=== PATIENT | male | born 1950 | race Caucasian/White ===

== ENCOUNTER 2016-12-14 06:58 | Day surgery (SDC) | payer OTHER ==
[~2016-12-14 06:58] MED LIST: Acetaminophen TAB* 325 MG PO PRN; Buffered Lidocaine 1% SYR 3ML* 3 ML/SYR SYRINGE INTRADERM ONE
[2016-12-14] MEDS ORDERED: Lidocaine 2% EPI 1:200000 MPF* 20 ML VIAL ONE (08:09)
[2016-12-14] MEDS ORDERED: Proparacaine 0.5% OPHTH.SOL* 15 ML BTL ONE (08:09)
[2016-12-14] MEDS ORDERED: Povidone Iodine 5% OPTH* 30 ML BTL ONE (08:09)
[2016-12-14] MEDS ORDERED: acetaZOLAMIDE TAB* 250 MG ONE (08:09)
[2016-12-14] MEDS ORDERED: Flurbiprofen 0.03% OPTH.SOL* 2.5 ML BTL ONE (08:09)
[2016-12-14] MEDS ORDERED: Cyclopentolate 1% OPTH.SOL* 2 ML BTL ONE (08:09)
[2016-12-14] MEDS ORDERED: Lidocaine 1% MPF* 2 ML VIAL ONE (08:09)
[2016-12-14] MEDS ORDERED: Neomycin/Polymy/Dex OPTH.SUSP* MAXITROL 0.1% 5 ML ONE (08:09)
[2016-12-14] MEDS ORDERED: Phenylephrine 2.5% OPTH.SOL* 2 ML BTL ONE (08:09)
[2016-12-14] MEDS ORDERED: Midazolam* 1 MG/ML 2 ML VIAL (2 MG) ONE ×2 (08:54→09:11)
[2016-12-14 09:44] VITALS: BP 141/66
--- NOTE | 2016-12-14 13:01 | OP ---
OPERATIVE NOTE: DATE OF OPERATION: 12/14/16 DATE OF : 50 SURGEON: Pasha Downey M.D. PREOPERATIVE DIAGNOSIS: Cataract, left eye. POSTOPERATIVE DIAGNOSIS: Cataract, left eye. OPERATIVE PROCEDURE: Phacoemulsification, left eye with IOL. PROCEDURE: The patient was brought to the operating room after being given 1/2% Alcaine with epinep hrine drops in the preoperative area. The eye was prepped and draped in the usual sterile fashion. Sterile drape and eyelid speculum were placed. Again, topical 1/2% Alcaine with epinephrine was gi zuleyka. A paracentesis incision was made at the 3 o'clock position with the No.75 blade. Clear cornea incision 2.2 x 2.2-mm was created at the 6 o'clock position starting at the anterior limbus using t he 2.2-mm keratome. The anterior chamber was irrigated with 0.4 mL of 1% non-preservative intracame ral lidocaine and filled with DisCoVisc. A capsulorrhexis was completed using the cystotome and the Utrata forceps. Hydrodissection was performed with balanced salt solution. The lens nucleus was re moved with the Phacoemulsification handpiece without incident. Cortex was removed with the irrigati on-aspiration handpiece. The capsular bag was re-inflated using DisCoVisc and an [id number] implant was inserted with the shooter. The irrigation-aspiration handpiece was used to remove all residual DisCoVisc. The eye was refilled with balanced salt solution and the wound checked and found to be w atertight. Topical Maxitrol drops were given. [id number]/[facility] #: [id number]
== END 2016-12-14 09:44 | disposition home or self-care (01) ==
LOC: OREAST 06:58
PROVIDERS: ATTEND Specialist
DX: H25.812 Combined forms of age-related cataract, left eye (principal); H43.811 Vitreous degeneration, right eye; I10 Essential (primary) hypertension
CPT/HCPCS: A9270-GY; J2250; V2632

== ENCOUNTER 2017-01-22 08:10 | Inpatient (IN) | payer OTHER ==
[2017-01-22] MEDS ORDERED: Aspirin TAB* 325 MG PO ONE (08:31)
[2017-01-22 08:35] LABS: Hematocrit 40 % (42-52); Hemoglobin 13.9 g/dl (14.0-18.0); Mean Corpuscular HGB Conc 35 g/dl (31-36); Mean Corpuscular Hemoglobin 32 pg (27-31); Mean Corpuscular Volume 92 fL (80-94); Mean Platelet Volume 7 um3 (7.4-10.4); Red Blood Count 4.38 10^6/ul (4.0-5.4); Red Cell Distribution Width 13 % (10.5-15); White Blood Count 5.5 10^3/ul (3.5-10.8)
[2017-01-22] MEDS ORDERED: Aspirin Low Dose CHEW TAB* 81 MG ONE (08:37)
[2017-01-22] MEDS ORDERED: Aspirin Low Dose CHEW TAB* 81 MG PO ONE (08:38)
--- NOTE | 2017-01-22 08:41 | RAD ---
INDICATION: Neurologic changes, code cody. COMPARISON: There are no prior studies available for comparison. TECHNIQUE: Contiguous axial sections of the brain were obtained from the skull base to the vertex without contrast. FINDINGS: The ventricles, cisterns and sulci are within normal limits. No significant focal abnormality or mass effect is seen. There is no evidence for hemorrhage. No significant focal osseous abnormality is seen. The visualized portion of the paranasal sinuses and mastoid air cells appear clear. The results of this exam were called to the referring clinician at 0835 hours. IMPRESSION: NO EVIDENCE FOR GROSS ACUTE INFARCT, MASS EFFECT OR HEMORRHAGE.
--- NOTE | 2017-01-22 09:01 | RAD ---
INDICATION: Neurologic changes code cody. COMPARISON: Comparison is made with prior chest x-ray study from August 24, 2007. TECHNIQUE: A portable view of the chest was obtained. FINDINGS: Cardiac and mediastinal contours appear to be within normal limits. There is a small area of increased density which projects over the right upper lobe. The lungs are otherwise clear. No pleural effusion is seen. IMPRESSION: THERE IS A SMALL AREA OF INCREASED DENSITY WHICH PROJECTS OVER THE RIGHT UPPER LOBE LIKELY ARTIFACTUAL ALTHOUGH A SMALL INFILTRATE OR PULMONARY NODULE CANNOT BE EXCLUDED. RECOMMEND PA AND LATERAL CHEST FILMS FOR FURTHER EVALUATION.
[2017-01-22 09:21] LABS: Albumin 4.3 g/dL (3.2-5.2); BUN/Creatinine Ratio 26.5 (8-20); Calcium 8.9 mg/dL (8.6-10.3); EGFR African American 69.8 (>60); EGFR Non-African American 54.3 (>60); Globulin 2.8 g/dL (2-4); HDL Cholesterol 44.7 mg/dL; Total Bilirubin 0.5 mg/dL (0.2-1.0); Total Protein 7.1 g/dL (6.4-8.9)
[2017-01-22] MEDS ORDERED: Alteplase* 100 MG VIAL ONE (09:36)
[2017-01-22] MEDS ORDERED: ALTEPLASE IVPB ONE (11:00)
[2017-01-22] MEDS ORDERED: ALTEPLASE IV ONE (11:00)
--- NOTE | 2017-01-22 12:00 | ED ---
Gisell Cain Alok, scribed for James Caraballo MD on 01/22/17 at 0823 . Neurological HPI - HPI Summary HPI Summary: 66M presents to the ED with numbness of the right arm since one hour ago. Pt states this numbness began at his fingertips and spread to the rest of his arm. Pt also notes loss of fine motor control in his right arm especially in his right 4th and 5th fingers. Pt denies difficulty ambulating or expressive aphasia. Pt denies neck pain. PMHx includes medically controlled HTN. - History of Current Complaint Chief Complaint: EDNeurologicalDeficit Stated Complaint: RIGHT ARM NUMBNESS Hx Obtained From: Patient Onset/Duration: Started hours ago, Still Present Timing: Constant Onset Severity: Moderate Current Severity: Moderate Neurological Deficit Location: RUE Pain Intensity: 0 Character: Motor Weakness, Sensory Loss Aggravating: Nothing Alleviating: Nothing Associated Signs and Symptoms: Positive: Weakness - Motor, Numbness. Negative: Unsteady Gait, Impaired Speech, Neck Pain/Stiffness - Allergy/Home Medications Allergies/Adverse Reactions: Allergies Allergy/AdvReac Type Severity Reaction Status Date / Time No Known Allergies Allergy Verified 01/22/17 08:29 PMH/Surg Hx/FS Hx/Imm Hx Endocrine/Hematology History: Denies: Hx Diabetes, Hx Thyroid Disease Cardiovascular History: Reports: Hx Hypertension - controlled with medication Respiratory History: Denies: Hx Asthma, Hx Chronic Obstructive Pulmonary Disease (COPD) GI History: Reports: Other GI Disorders - indigestion in AM. Increased acid production, controlled with medication. Denies: Hx Ulcer Sensory History: Reports: Hx Cataracts - left eye only, Hx Contacts or Glasses - reading Denies: Hx Hearing Aid Opthamlomology History: Reports: Hx Cataracts - left eye only, Hx Contacts or Glasses - reading - Surgical History Hx Anesthesia Reactions: No Infectious Disease History: Denies: Hx Hepatitis, Hx Human Immunodeficiency Virus (HIV), Traveled Outside the [place] in Last 30 Days - Family History Known Family History: Negative: Cardiac Disease, Hypertension, Diabetes - Social History Occupation: Retired Lives: With Family Alcohol Use: Weekly Alcohol Amount: 1-2 drinks a day Substance Use Type: Reports: None Smoking Status (MU): Never Smoked Tobacco Review of Systems Negative: Fever Negative: Other - neck pain Positive: Weakness - Motor, Numbness. Negative: Slurred Speech All Other Systems Reviewed And Are Negative: Yes Physical Exam Triage Information Reviewed: Yes Vital Signs On Initial Exam: Initial Vitals Temp Pulse Resp BP Pulse Ox 98.3 F 62 17 172/82 99 01/22/17 08:12 01/22/17 08:12 01/22/17 08:12 01/22/17 08:12 01/22/17 08:12 Vital Signs Reviewed: Yes Appearance: Positive: Well-Appearing, No Pain Distress Skin: Positive: Warm, Skin Color Reflects Adequate Perfusion, Dry Head/Face: Positive: Normal Head/Face Inspection Eyes: Positive: Normal ENT: Positive: Normal ENT inspection Neck: Positive: Supple, Nontender Respiratory/Lung Sounds: Positive: Clear to Auscultation, Breath Sounds Present Cardiovascular: Positive: RRR Abdomen Description: Positive: Nontender, Soft Bowel Sounds: Positive: Present Musculoskeletal: Positive: Normal Neurological: Positive: Normal, Sensory/Motor Intact, Alert, Oriented to Person Place, Time, CN Intact II-III, Other - Mild right-sided dysmetria Psychiatric: Positive: Normal, Affect/Mood Appropriate Diagnostics - Vital Signs Vital Signs Temp Pulse Resp BP Pulse Ox 01/22/17 08:12 98.3 F 62 17 172/82 99 - Laboratory Lab Results: Lab Results 01/22/17 01/22/17 01/22/17 Range/Units 08:30 08:30 08:30 WBC 5.5 (3.5-10.8) 10^3/ul RBC 4.38 (4.0-5.4) 10^6/ul Hgb 13.9 L (14.0-18.0) g/dl Hct 40 L (42-52) % MCV 92 (80-94) fL MCH 32 H (27-31) pg MCHC 35 (31-36) g/dl RDW 13 (10.5-15) % Plt Count 182 (150-450) 10^3/ul MPV 7 L (7.4-10.4) um3 Neut % (Auto) 65.4 (38-83) % Lymph % (Auto) 22.0 L (25-47) % Andrews % (Auto) 7.6 (1-9) % Eos % (Auto) 4.1 (0-6) % Baso % (Auto) 0.9 (0-2) % Absolute Neuts (auto) 3.6 (1.5-7.7) 10^3/ul Absolute Lymphs (auto) 1.2 (1.0-4.8) 10^3/ul Absolute Monos (auto) 0.4 (0-0.8) 10^3/ul Absolute Eos (auto) 0.2 (0-0.6) 10^3/ul Absolute Basos (auto) 0 (0-0.2) 10^3/ul Absolute Nucleated RBC 0 10^3/ul Nucleated RBC % 0 INR (Anticoag Therapy) 0.80 L (0.89-1.11) APTT 27.4 (26.0-36.3) seconds Sodium 135 (133-145) mmol/L Potassium 4.0 (3.5-5.0) mmol/L Chloride 108 (101-111) mmol/L Carbon Dioxide 22 (22-32) mmol/L Anion Gap 5 (2-11) mmol/L BUN 35 H (6-24) mg/dL Creatinine 1.32 H (0.67-1.17) mg/dL Est GFR ( Amer) 69.8 (>60) Est GFR (Non-Af Amer) 54.3 (>60) BUN/Creatinine Ratio 26.5 H (8-20) Glucose 126 H (70-100) mg/dL Lactic Acid (0.5-2.0) mmol/L Calcium 8.9 (8.6-10.3) mg/dL Total Bilirubin 0.50 (0.2-1.0) mg/dL AST 25 (13-39) U/L ALT 28 (7-52) U/L Alkaline Phosphatase 30 L (34-104) U/L Troponin I 0.00 (<0.04) ng/mL Total Protein 7.1 (6.4-8.9) g/dL Albumin 4.3 (3.2-5.2) g/dL Globulin 2.8 (2-4) g/dL Albumin/Globulin Ratio 1.5 (1-3) Triglycerides 78 mg/dL Cholesterol 162 mg/dL LDL Cholesterol 102 mg/dL HDL Cholesterol 44.7 mg/dL Blood Type Antibody Screen 01/22/17 01/22/17 Range/Units 08:30 08:30 WBC (3.5-10.8) 10^3/ul RBC (4.0-5.4) 10^6/ul Hgb (14.0-18.0) g/dl Hct (42-52) % MCV (80-94) fL MCH (27-31) pg MCHC (31-36) g/dl RDW (10.5-15) % Plt Count (150-450) 10^3/ul MPV (7.4-10.4) um3 Neut % (Auto) (38-83) % Lymph % (Auto) (25-47) % Andrews % (Auto) (1-9) % Eos % (Auto) (0-6) % Baso % (Auto) (0-2) % Absolute Neuts (auto) (1.5-7.7) 10^3/ul Absolute Lymphs (auto) (1.0-4.8) 10^3/ul Absolute Monos (auto) (0-0.8) 10^3/ul Absolute Eos (auto) (0-0.6) 10^3/ul Absolute Basos (auto) (0-0.2) 10^3/ul Absolute Nucleated RBC 10^3/ul Nucleated RBC % INR (Anticoag Therapy) (0.89-1.11) APTT (26.0-36.3) seconds Sodium (133-145) mmol/L Potassium (3.5-5.0) mmol/L Chloride (101-111) mmol/L Carbon Dioxide (22-32) mmol/L Anion Gap (2-11) mmol/L BUN (6-24) mg/dL Creatinine (0.67-1.17) mg/dL Est GFR ( Amer) (>60) Est GFR (Non-Af Amer) (>60) BUN/Creatinine Ratio (8-20) Glucose (70-100) mg/dL Lactic Acid 1.0 (0.5-2.0) mmol/L Calcium (8.6-10.3) mg/dL Total Bilirubin (0.2-1.0) mg/dL AST (13-39) U/L ALT (7-52) U/L Alkaline Phosphatase (34-104) U/L Troponin I (<0.04) ng/mL Total Protein (6.4-8.9) g/dL Albumin (3.2-5.2) g/dL Globulin (2-4) g/dL Albumin/Globulin Ratio (1-3) Triglycerides mg/dL Cholesterol mg/dL LDL Cholesterol mg/dL HDL Cholesterol mg/dL Blood Type O Positive Antibody Screen Negative Result Diagrams: 01/22/17 08:30 01/22/17 08:30 Lab Statement: Any lab studies that have been ordered have been reviewed, and results considered in the medical decision making process. - Radiology CXR Xray Interpretation: Positive (See Comments) - IMPRESSION: THERE IS A SMALL AREA OF INCREASED DENSITY WHICH PROJECTS OVER THE RIGHT UPPER LOBE LIKELY ARTIFACTUAL ALTHOUGH A SMALL INFILTRATE OR PULMONARY NODULE CANNOT BE EXCLUDED. RECOMMEND PA AND LATERAL CHEST FILMS FOR FURTHER EVALUATION. Radiology Interpretation Completed By: Radiologist - CT Brain CT CT Interpretation: Positive (See Comments) - IMPRESSION: NO EVIDENCE FOR GROSS ACUTE INFARCT, MASS EFFECT OR HEMORRHAGE. CT Interpretation Completed By: Radiologist - EKG 0831 Cardiac Rate: Bradycardia - 55 bpm EKG Rhythm: Sinus Bradycardia Course/Dx - Course Course Of Treatment: Mr. Pete had the sudden onset of right arm numbness and loss of coordination about an hour and a half prior to presentation, He has a history of HTN. On arrival he had some mild decreased sensation in the right hand and dysmetria aith the right arm and a Yoly Zamudio was called. Dr. Tafoya responded promptly and after a little [id number] with the patient and his symptoms, TPA was given. 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
[2017-01-22] MEDS ORDERED: Iodixanol* (CONTRAST) 320 MG/ML 100 ML SDV IV ONE (12:18)
--- NOTE | 2017-01-22 12:52 | HP ---
H&P (Free Text) History and Physical: History and Physical Critical Care Requesting Physician: Dr James Caraballo Limitations in history/physical: none Date of admission: 01/22/2017 HPI: 66y M pmhx of hypertension, GERD; who presents to ER for complaints of right hand numbness at 7am, started suddenly, remains in hand and fingertips. Then developed weakness and lost fine motor capability. He was had no Right upper ext or bilateral lower ext weakness or numbness. No headache/palpitations/ dizziness/double vision/cp/sob. No abd pain. No syncope/LOC. He came to the ER. CT head done showing no hemorrhage. Neurology consult called stat. Initially the symptoms started to improve and tPA was held off. Then symptoms reoccurred. tPA administration was discussed with patient who agreed then. He was given tPA at 1005am. He is currently in bed, no right hand/arm numbness or weakness. He feels okay. HE states no slurred speech. He is awake, alert. No previous arrhythmias as per him. Compliant with medications. No previous history of stroke/TIA. ROS: negative except for pertitent positives and negatives mentioned above. PMHx: Hypertension, GERD PSHx: none Family History: HTN, Cardiac disease, DM Social History: Alcohol social, Smoking none, Drug use none; retired from job Allergies: NKDA Home Medications: Atenolol TAB* [Tenormin TAB*] 100 mg PO QAM 02/25/13 [History Confirmed 01/22/17 ] Multivitamins/Minerals TAB* [Thera M Plus TAB*] 1 tab PO QAM 02/25/13 [History Confirmed 01/22/17] Triamcinolone NASAL SPRAY* [Nasacort AQ Nasal [place]*] 2 puff BOTH NARES DAILY [History Confirmed 01/22/17] Amlodipine Besylate [Norvasc 5 mg tab] 1 tab PO QAM 12/09/16 [History Confirmed 01/22/17] Lactobacillus [Probiotic] 1 cap PO QAM 12/09/16 [History Confirmed 01/22/17] Losartan Potassium 100 mg PO QAM 12/09/16 [History Confirmed 01/22/17] Pantoprazole TAB (NF) [Protonix TAB (NF)] 1 tab PO BID 12/09/16 [History Confirmed 01/22/17] Spironolactone [Aldactone 25 MG-] 1 tab PO QAM 12/09/16 [History Confirmed 01/22] Tele: Sinus bradycardia Vitals: Vital Signs Temp 97.9 F 01/22/17 12:54 Pulse 54 01/22/17 12:54 Resp 10 01/22/17 12:54 BP 155/72 01/22/17 12:54 Pulse Ox 96 01/22/17 12:54 Intake & Output 01/21/17 01/22/17 01/22/17 18:59 06:59 18:59 Intake Total 82 Balance 82 Weight 201 lb 12.8 oz Intake: IV Fluids 82 O2/Vent: RA, sat >95% Infusions: none Current Medications: Atenolol (Tenormin Tab*) 100 mg PO QAM JOSE Atorvastatin Calcium (Lipitor*) 80 mg PO 1700 JOSE Omeprazole (Prilosec Cap*) 20 mg PO 0730,1630 JOSE Physical Exam: General: awake, alert, no distress, no diaphoresis Head: normocephalic, atraumatic HEENT: no pallor, no icterus, moist mucous membranes Neck: soft, supple, no jvd, no stridor CVS: bradycardic, normal rhythm, no murmur Resp: bilateral air entry, no rhales, no wheeze, no rhonchi, no acc muscle use Abdomen: soft, nontender, nondistended, bowel sounds present Ext: pulses+, warm, no edema Skin: intact, no breakdown, no dryness Neuro: awake, alert, orientedx3, all ext 5/5 strength and sensation intact ( gross, fine), no facial droop, Cranial nerves intact. pupils bilaterally reactive. Labs: Laboratory Results - last 24 hr 01/22/17 01/22/17 01/22/17 08:30 08:30 08:30 WBC 5.5 RBC 4.38 Hgb 13.9 L Hct 40 L MCV 92 MCH 32 H MCHC 35 RDW 13 Plt Count 182 MPV 7 L Neut % (Auto) 65.4 Lymph % (Auto) 22.0 L [place] % (Auto) 7.6 Eos % (Auto) 4.1 Baso % (Auto) 0.9 Absolute Neuts (auto) 3.6 Absolute Lymphs (auto) 1.2 Absolute Monos (auto) 0.4 Absolute Eos (auto) 0.2 Absolute Basos (auto) 0 Absolute Nucleated RBC 0 Nucleated RBC % 0 INR (Anticoag Therapy) 0.80 L APTT 27.4 Sodium 135 Potassium 4.0 Chloride 108 Carbon Dioxide 22 Anion Gap 5 BUN 35 H Creatinine 1.32 H Est GFR ( Amer) 69.8 Est GFR (Non-Af Amer) 54.3 BUN/Creatinine Ratio 26.5 H Glucose 126 H Lactic Acid Calcium 8.9 Total Bilirubin 0.50 AST 25 ALT 28 Alkaline Phosphatase 30 L Troponin I 0.00 Total Protein 7.1 Albumin 4.3 Globulin 2.8 Albumin/Globulin Ratio 1.5 Triglycerides 78 Cholesterol 162 LDL Cholesterol 102 HDL Cholesterol 44.7 Blood Type Antibody Screen 01/22/17 01/22/17 08:30 08:30 WBC RBC Hgb Hct MCV MCH MCHC RDW Plt Count MPV Neut % (Auto) Lymph % (Auto) [place] % (Auto) Eos % (Auto) Baso % (Auto) Absolute Neuts (auto) Absolute Lymphs (auto) Absolute Monos (auto) Absolute Eos (auto) Absolute Basos (auto) Absolute Nucleated RBC Nucleated RBC % INR (Anticoag Therapy) APTT Sodium Potassium Chloride Carbon Dioxide Anion Gap BUN Creatinine Est GFR ( Amer) Est GFR (Non-Af Amer) BUN/Creatinine Ratio Glucose Lactic Acid 1.0 Calcium Total Bilirubin AST ALT Alkaline Phosphatase Troponin I Total Protein Albumin Globulin Albumin/Globulin Ratio Triglycerides Cholesterol LDL Cholesterol HDL Cholesterol Blood Type O Positive Antibody Screen Negative Imaging: cxr 01/22 - no infiltrate/effusion CT head 01/22 - no acute infarct/hemorrhage CTA 01/22 pending Assessment: 66y M pmhx of hypertension, GERD; who presents to ER for complaints of right hand numbness at 7am, started suddenly, remains in hand and fingertips. Symptoms resolved then reoccurred. He was given tPA at 1005am. NIHSS 3 -s/p tPA for Ischemic CVA, suspect left MCA territory given symptoms. -Hypertension -Renal insufficiency, JIGNESH? Plan: Neuro- neurochecks q1 h, fall prec, asp prec. carotid duplex. MRI in AM. CTA done and pending read. Symptoms have improved. ASA starting in AM. Tele monitoring for Afib/flutter. Maintain passive hypertension 140-160 systolic. Start IVF. Very mild deficit initially, will allow clear liquid diet for now, NPO if any progression in symptoms. Neurology consul done. CVS- sinus reid. tele monitoring. ECHO for eval of thrombus. Carotid duplex. CTA done and pending. ASA in AM. no history of arrhythmia from pt. Resp- on RA, no distress ID- afebrile. wbc normal. no abx indicated. GI- clear liquid while neuro checks ongoing. Renal- mild JIGNESH, start NS infusion 60cc/hour. johnson in place. monitor i/o. monitor electrolytes. Heme- monitor for bleeding post tpa. hg stable. plt stable. Endo- avoid fingersticks now. Musculsk- bedrest strict. Wounds- none Nutrition- clear liquid diet for now, advance in 24 hours if no change in neuro status. DVT prophylaxis: s/p tpa GI prophylaxis: none Central Line: none Arterial Line: none Johnson Cathetor: yes Disposition: ICU for neurochecks post tpa for CVA Code Status: full code Estimiated lenght of stay >2 midnight Dean Guzman MD Airborne And Air Delivery Specialist (Electronically Signed)
--- NOTE | 2017-01-22 13:12 | CONS ---
CC: Manuel Chaudhary MD CONSULTATION REPORT: DATE OF CONSULT: 01/22/17 REASON FOR CONSULT: Acute stroke, code cody. REQUESTING PHYSICIAN: Dr. Caraballo in the ED. HISTORY OF PRESENT ILLNESS: Patient is a 66-year-old right-handed male who was in his usual state of health until earlier today. At about 6 a.m., he woke up from sleep, and everything was fine, around 7 a.m. he felt sudden numbness in the right arm with decreased dexterity on the same hand. There was no other associated symptoms such as no double vision, diplopia, dizziness, or weakness in the legs or dysarthria. He came to the ED, Neurology was called around 8:20 a.m. By the time I arrived at the bedside, it was 8:45. PAST MEDICAL HISTORY: Significant only for hypertension since and has been on blood pressure medications. PAST SURGICAL HISTORY: None. FAMILY HISTORY: Father of liver cancer probably in his 50s. Mother in her 70s, no clear cause. He has 1 brother who probably has Alzheimer's dementia. SOCIAL HISTORY: Lives with his who is at the bedside. The patient does not smoke or use drugs. He drinks about 2 drinks every day. 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 ALLERGIES: NO KNOWN DRUG ALLERGIES. MEDICATIONS: 1. Spironolactone 1 tablet of 25 mg p.o. daily. 2. Protonix 1 tablet p.o. b.i.d. 3. Multivitamin. 4. Losartan 100 mg p.o. q. a.m. 5. Atenolol 100 mg p.o. q. a.m. 6. Amlodipine 1 tablet p.o. q. a.m. 5 mg. REVIEW OF SYSTEMS: Complete review of systems was performed and other than what is mentioned in HPI is negative. PHYSICAL EXAM: Blood pressure is 156/82 and fluctuates with the highest since arrival to the hospital being 172/82, pulse rate is 54, respiratory rate 20, O2 sat 95 to 99% on room air. Temperature 97.5. Patient is awake, alert and oriented x3. Pupils are symmetric and reactive to light. Extraocular movements are intact. Visual freeman are intact by confrontation. Face is symmetric. V1 to V3 is intact to light touch and pinprick bilaterally. Tongue is in midline. Palate elevates upwards. On motor exam, there is a pronator drift on the right arm and industrial relations manager on the right hand slightly less compared to the left. Otherwise, strength is 5/5 throughout. Sensory exam is slightly decreased to light touch and pinprick in the right upper extremity from shoulder down to the hand. Finger-to- nose, has a mile ataxia (tremor) on the right arm with subtle dysmetria. Rapid alternative movements slightly slower on the right hand. Heel to bravo is intact bilaterally. Deep tendon reflexes are 1+ in upper and lower extremities bilaterally. Gait is narrow-based and stable. NIH stroke scale at this point is 3 with 1 point for right arm drift, 1 point for mild sensory decrease in the right upper extremity and 1 point for limb ataxia in one limb. DIAGNOSTIC STUDIES/LAB DATA: WBC 5.5, hemoglobin 13.9, hematocrit 40, platelet 182, INR is 0.80. Chemistry: Sodium 135, potassium 4, chloride 108, BUN 35, creatinine 1.32. Glucose 126. AST 25, ALT 28. LDL is 102, HDL is 44. IMAGING: A CT of the head shows no evidence of acute infarct, mass effect, no hemorrhage. ASSESSMENT AND PLAN: Patient is a 66-year-old right-handed male with an acute onset of right arm weakness with decreased dexterity in that hand and numbness in the same arm. On exam, NIH stroke scale is 3. The patient's symptoms were fluctuating since the start and also while he was in the ED. The clinical presentation is more consistent with an acute stroke of small vessel type, probably lacunar infract. NIH stroke scale is low, but given the patient is right-handed and is highly functional, offered the option of thrombolytic therapy and discussed the risks and benefits. I discussed that thrombolytic therapy will less likely be effective in lacunar strokes (likely what he has). The patient eventually decided to proceed with the thrombolytic therapy understanding the risks and knowing that it may not be completely effective. Therefore, we proceeded with that and the bolus was given around 9:55 am. He will be admitted to ICU for close monitoring for 24 hours post tPA. We will keep the blood pressure on the higher side for permissive hypertension but systolic less than 180 and diastolic less than 110. We will start high dose statin at 80 mg Lipitor, also need an MRI of the brain and CT angiogram of the head and neck as well as a transthoracic echo and tele monitoring. Rest of the post tPA orders were entered including no anticoagulation or antiplatelets for 24 hours after administration of tPA. [id number]/[facility] #: [id number] [facility]
--- NOTE | 2017-01-22 13:16 | RAD ---
INDICATION: Neurologic changes, code cody. COMPARISON: Comparison is made with a prior CT of the brain of the same day. TECHNIQUE: A CT angiogram of the head and neck was performed following intravenous injection of 80 ml of Visipaque 320 nonionic contrast. Contiguous axial sections were obtained from the thoracic inlet through the skull vertex. Images were reconstructed in the coronal and sagittal planes and in a 3-D volume rendered format. The distal cervical internal carotid artery diameter is used as the denominator for stenosis measurement. 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 The right common carotid artery appears widely patent. There is moderate calcific and soft plaque within the carotid bulb and proximal internal carotid artery giving rise to approximately a 30-40% stenosis. The remaining internal carotid artery appears widely patent. LEFT CAROTID: The left common carotid artery appears widely patent. There is moderate calcific and soft plaque within the carotid bulb and proximal internal carotid artery. There also appears to be an ulcerated plaque within the carotid bulb. There is a 30-40% stenosis present. The remaining internal carotid artery appears widely patent. VERTEBRALS: The right vertebral artery arises from the proximal right common carotid artery. The vertebral arteries appear patent without evidence for high-grade stenosis or occlusion. CTA BRAIN: There is moderate calcific plaque present within the cavernous portion of the internal carotid arteries. There is no evidence for high-grade stenosis or occlusion. The anterior and middle cerebral arteries appear patent without evidence for high-grade stenosis or occlusion. The vertebral, basilar and posterior cerebral arteries appear patent without evidence for high-grade stenosis or occlusion. No gross focal perfusion abnormalities are seen. No aneurysm or vascular malformation is seen. NECK: No significant enlarged lymph nodes are seen within the neck. The thyroid, parotid and submandibular glands appear to be within normal limits. The lung apices appear clear. There are small mucous retention cysts or polyps within the maxillary sinuses. The sinuses and mastoid air cells otherwise appear clear. IMPRESSION: 1. THERE IS MODERATE PLAQUE PRESENT WITHIN THE CAROTID BULBS AND PROXIMAL INTERNAL CAROTID ARTERIES. NO HEMODYNAMICALLY SIGNIFICANT STENOSIS IS PRESENT. THERE IS AN ULCERATED PLAQUE WITHIN THE LEFT CAROTID BULB. 2. NO EVIDENCE FOR LARGE VESSEL INTRACRANIAL THROMBUS. 3. ABERRANT ORIGIN OF THE RIGHT SUBCLAVIAN ARTERY DESCRIBED. 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 CPT II Codes: 3100F
[2017-01-22] MEDS: NS 0.9% 1000 ML* 1,000 ML IV SCH (13:35)
[2017-01-22 13:54] LABS: Hematocrit 39 % (42-52); Hemoglobin 13.6 g/dl (14.0-18.0); Mean Corpuscular HGB Conc 35 g/dl (31-36); Mean Corpuscular Hemoglobin 32 pg (27-31); Mean Corpuscular Volume 92 fL (80-94); Mean Platelet Volume 7 um3 (7.4-10.4); Red Blood Count 4.26 10^6/ul (4.0-5.4); Red Cell Distribution Width 13 % (10.5-15); White Blood Count 5.8 10^3/ul (3.5-10.8)
[2017-01-22 14:05] LABS: Calcium 8.9 mg/dL (8.6-10.3); EGFR African American 85.2 (>60); EGFR Non-African American 66.3 (>60)
[2017-01-22] MEDS ORDERED: Acetaminophen SUPP* 650 MG SUPP PR PRN (14:51)
[2017-01-22] MEDS: Omeprazole CAP* 20 MG PO SCH (18:03)
[2017-01-22] MEDS: Atorvastatin* 80 MG TAB PO SCH (18:03)
[2017-01-23] MEDS: Acetaminophen TAB* 325 MG PO PRN ×3 (04:38→18:00)
[2017-01-23 06:14] LABS: Hematocrit 37 % (42-52); Hemoglobin 13.4 g/dl (14.0-18.0); Mean Corpuscular HGB Conc 36 g/dl (31-36); Mean Corpuscular Hemoglobin 33 pg (27-31); Mean Corpuscular Volume 91 fL (80-94); Mean Platelet Volume 7 um3 (7.4-10.4); Red Blood Count 4.12 10^6/ul (4.0-5.4); Red Cell Distribution Width 13 % (10.5-15); White Blood Count 7.3 10^3/ul (3.5-10.8)
[2017-01-23 06:15] LABS: Comments Flag Yes
[2017-01-23] MEDS: NS 0.9% 1000 ML* 1,000 ML IV SCH (06:15)
[2017-01-23 06:40] LABS: Calcium 8.6 mg/dL (8.6-10.3); Potassium 3.7 mmol/L (3.5-5.0)
[2017-01-23 07:46] LABS: BUN/Creatinine Ratio 19.2 (8-20); EGFR African American 97.3 (>60); EGFR Non-African American 75.6 (>60)
[2017-01-23] MEDS ORDERED: Perflutren Lipid Microsphere* 3 ML VIAL ONE (07:55)
[2017-01-23] MEDS: Atenolol TAB* 50 MG PO SCH (09:41)
--- NOTE | 2017-01-23 09:42 | ECHO ---
Patient: ANTWAN STEPHENS [facility] Rec#: [id number] : 1950 Date: 01/23/2017 Age: 66y Weight: kg / NaN lbs Sex: M Room#: ICU-10 Admit Date#: 01/22/2017 Type: Inpatient Referring: Dean Guzman Reading: Martin Latif MD Neurology Manager: Faye Last RDCS CC: Manuel Chaudhary MD Transthoracic Echocardiogram Indication: CVA BP: 137/68 HR: 59 Rhythm: Bradycardia Findings History: HTN,GERD,+ family history. Technical Comments: The study quality is good. Completed at 0832. Left Ventricle: The left ventricular chamber size is normal. Septal wall hypertrophy is observed. Global left ventricular wall motion and contractility are within normal limits. There is normal left ventricular systolic function. The estimated ejection fraction is 55-60%. Abnormal left ventricular diastolic function is observed. No thrombus is visualized within the left ventricle. Left Atrium: The left atrium is mildly dilated. Right Ventricle: The right ventricular cavity size is normal. The right ventricular global systolic function is normal. Right Atrium: The right atrium is mildly dilated. Aortic Valve: The aortic valve is trileaflet. The aortic valve leaflets are mildly thickened. There is mild aortic regurgitation. There is no evidence of aortic stenosis. Mitral Valve: The mitral valve leaflets are mildly thickened. There is moderate mitral regurgitation. There is no evidence of mitral stenosis. Tricuspid Valve: The tricuspid valve leaflets are normal. There is no evidence of tricuspid valve regurgitation. Unable to estimate the right ventricular systolic pressure. There is no tricuspid stenosis. Pulmonic Valve: The pulmonic valve appears normal. There is mild pulmonic regurgitation. There is no pulmonic stenosis. Pericardium: The pericardium appears normal. Aorta: There is mild dilatation of the ascending aorta.3.7 cm There is no dilatation of the aortic arch. There is mild dilatation of the aortic root. Pulmonary Artery: The main pulmonary artery appears normal. Venous: The venous system is not well visualized. Contrast: Definity was used to optimize study. A otal of 3 ml used. Intravenous contrast was used to enhance endocardial border definition. Conclusions Global left ventricular wall motion and contractility are within normal limits. There is normal left ventricular systolic function. The estimated ejection fraction is 55-60%. Abnormal left ventricular diastolic function is observed. The right ventricular global systolic function is normal. There is mild aortic regurgitation. There is moderate mitral regurgitation. There is no evidence of tricuspid valve regurgitation. Unable to estimate the right ventricular systolic pressure. There is mild dilatation of the ascending aorta.3.7 cm Measurements Name Value Normal Range RVIDd (AP) 2D 3.3 cm (0.9 - 2.6) RVDdMajor (2D) 3.6 cm (2.2 - 4.4) RAd ISD 4CH 6 cm (3.4 - 4.9) RA (A4C)W 3.4 cm (2.9 - 4.6) IVSd (2D) 1.4 cm (0.6 - 1) LVPWd (2D) 1 cm (0.6 - 1) LVIDd (2D) 4.9 cm (3.6 - 5.4) LVIDs (2D) 3.7 cm - LV FS (2D) 26 % (25 - 45) Aortic Annulus 2.1 cm (1.4 - 2.6) Ao root diameter (2D) 3.7 cm (2.1 - 3.5) Ascending Ao 3.7 cm (2.1 - 3.4) Aortic arch 2.8 cm (1.8 - 3.4) Descending Ao 0.7 cm - LA dimension (AP) 2D 4 cm (2.3 - 3.8) LAd ISD 4CH 5.6 cm (2.9 - 5.3) LA ISD 4CH W 4.1 cm (2.5 - 4.5) Name Value Normal Range LA ESV SP 4CH (A/L) 38.58 ml - LA ESV SP 2CH (A/L) 76.75 ml - LA ESV BP (A/L) 55.99 ml - LA ESV SP 4CH (MOD) 37.55 ml - LA ESV SP 2CH (MOD) 73.11 ml - Name Value Normal Range MV E-wave Vmax 1 m/sec - MV deceleration time 165 msec - MV A-wave Vmax 1.1 m/sec - MV E:A ratio 0.87 ratio - LV septal e' Vmax 0.06 m/sec - LV lateral e' Vmax 0.08 m/sec - LV E:e' septal ratio 16.67 ratio - LV E:e' lateral ratio 12.5 ratio - Name Value Normal Range AV Vmax 1.5 m/sec - AV VTI 34.9 cm - AV peak gradient 9.04 mmHg - AV mean gradient 4.5 mmHg - LVOT diameter 2.1 cm - LVOT Vmax 1.2 m/sec - LVOT VTI 29.2 cm - LVOT peak gradient 5.53 mmHg - LVOT mean gradient 2.43 mmHg - CARLOS (continuity Vmax) 3.2 cm2 - CARLOS (continuity VTI) 2.9 cm2 - AR PHT 644 msec - AR peak gradient 94.93 mmHg - Name Value Normal Range PV Vmax 0.9 m/sec - PV peak gradient 3.27 mmHg -
--- NOTE | 2017-01-23 12:02 | RAD ---
HISTORY: Headaches, right-sided weakness, status post TPA COMPARISONS: CT dated January 22, 2017 TECHNIQUE: The following sequences were obtained of the head: Sagittal T1-weighted images, axial T2-weighted images, axial FLAIR images, axial susceptibility weighted images, axial T1-weighted images. Additionally, axial diffusion-weighted images were obtained with calculated apparent diffusion coefficients. FINDINGS: HEMORRHAGE/INFARCT: There is minimal restricted diffusion along the cortex of the left postcentral gyrus consistent with subacute nonhemorrhagic infarct. Elsewhere, there is no hemorrhage or acute infarct. MASSES/SHIFT: There is no mass or shift. EXTRA-AXIAL SPACES/MENINGES: There are no extra-axial fluid collections. SULCI AND VENTRICLES: The sulci and ventricles are normal in size and position for the patient's stated age. CEREBRUM: There are multiple scattered small foci of elevated T2/FLAIR signal within the periventricular and subcortical white matter. Additionally, there is elevated T2/fat signal along the cortex of the left post central gyrus. BRAINSTEM: There are no focal parenchymal abnormalities. CEREBELLUM: There are no focal parenchymal abnormalities. The cerebellar tonsils are normal in size and position. SELLA: The sella is normal. PINEAL: The pineal region is clear. CP ANGLE/TEMPORAL BONES: The labyrinthine structures are grossly normal. VESSELS: Normal flow-voids are noted within the visualized vertebral vasculature. DIFFUSION ABNORMALITIES: As noted above, there is linear restricted diffusion along the cortex of the post central gyrus on the left. PARANASAL SINUSES/MASTOIDS: The paranasal sinuses are clear. ORBITS: The orbits are unremarkable. BONES AND SOFT TISSUE: No bone or soft tissue abnormalities are noted. OTHER: None IMPRESSION: 1. THERE IS MINIMAL LINEAR RESTRICTED DIFFUSION ALONG THE POSTCENTRAL GYRUS ON THE LEFT CONSISTENT WITH SUBACUTE HEMORRHAGIC INFARCT. 2. SCATTERED NONSPECIFIC WHITE MATTER CHANGES
[2017-01-23] MEDS ORDERED: Ondansetron INJ* 2 MG/ML VIAL ONE (12:20)
[2017-01-23] MEDS: Ondansetron INJ* 2 MG/ML VIAL IV PRN ×2 (12:22→18:02)
--- NOTE | 2017-01-23 12:31 | PN ---
FOLLOW-UP NOTE DATE OF VISIT: 01/23/2017. HISTORY OF PRESENT ILLNESS: Mr. 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 He was found to have NIH stroke scale of 3. His symptoms fluctuated in the emergency room. He went on to receive TPA without complication thus far. He has improvement of numbness and clumsiness by 1:00 p.m. yesterday which returned for about ten minutes this morning at about 5:00-5:30 a.m. He has had residual heaviness in the right arm. Mr. Pete's past medical history does include hypertension. He remembers his doctor saying his cholesterol may have been borderline. He was not on an aspirin a day. In the past, he had been on aspirin, had a little upset stomach. The had scoped him and saw a tiny area of red and put him onto GI prophylaxis and stopped the aspirin at that time. Of note, there has been no chronic cough, weight loss, drenching night sweats, high fevers for unknown reason, no history of blood in urine or stools. He has otherwise felt healthy. He denies any chest pain, chest pressure, or palpitations. PHYSICAL EXAMINATION: On examination today, Mr. Pete's blood pressure was 153/ 69, his pulse was 56, respiratory rate 13, saturation was 95 percent. His most recent temperature was 98.1 degrees Fahrenheit. He had a regular cardiac rhythm. His lungs were clear to auscultation. There was no carotid bruit. His peripheral pulses were intact. There was no evidence of petechia. No peripheral edema. No evidence of a cord to palpation of his calves. He was awake, alert, articulate, had normal language function, adequate fund of knowledge. His pupils were equal and responsive to light. He had normal fundi. He had full extraocular movements with no nystagmus and full freeman to confrontation. His facial expression, sensation and hearing were equal. Palate was upgoing. Tongue was midline. Sternocleidomastoid and trapezius was 5/5 in strength. There was normal bulk and tone. There was a right pronator drift. He was strong in his upper and lower extremities with exception of the right arm which was weak at deltoid 5-/5, biceps and triceps 4+/5, and right hand intrinsic hand muscles 5-/5. His lower extremities were strong. There was no asymmetry to pinprick, cold or light touch. Vibration sensation was decreased at the right large toe by 10 to 15 seconds. At the left large toe, vibration was difficult to appreciate, and ankles were normal. His reflexes were 2+ in the upper extremities, 1+ in the lower extremities. His toes were flexor response. There was no evidence of dysmetria with gexquo-br-lsqt and edgj-iy-gdge movements. Gait was not tested due to the fact that he is still within the 24 hour period of his TPA. LABORATORY DATA/DIAGNOSTIC STUDIES: Data includes a lipid profile on admission with a total cholesterol of 162, triglycerides 78, LDL 102, HDL 44.7. His CTA of the brain and neck showed an ulcerated plaque of the left carotid with no hemodynamically significant stenosis. Please see report for details. His current metabolic panel was within normal limits. His initial troponin was 0 and repeated at 0. His CBC showed a slight anemia with a hemoglobin of 13.4, hematocrit 37, with lymphocyte percentage low at 15.2. His INR on admission was 0.80. IMPRESSION: Mjjej-vdd-dyhb-old, right-hand gentleman with a history of hypertension with fluctuating right upper extremity symptoms consistent with ischemic stroke. MRI is pending which will help us further to define the location of the stroke. At minimum, I would start an enteric-coated aspirin after stroke. He is on Omeprazole. If there is any GI upset, I would consider switching to Plavix. His CTA of the brain and neck did show an ulcerated plaque on the left, therefore thromboembolic source is possible. He has been started on Atorvastatin. He is currently on telemetry and an echocardiogram is pending. If there is a cardioembolic source of the stroke, we will have to proceed with anticoagulation once the 24 hour period of time is over after TPA. PT, OT, and speech therapy has been ordered. Education was given to the patient and regarding stroke, potential mechanisms, work-up to date, work-up plan, and questions were fielded regarding prognosis, risk for fluctuation, decline and further stroke. Over 45 minutes were spent in direct [id number] patient care, over 50 percent of the time was spent in education and counseling regarding above issues. All questions were answered. [id number]/[facility] #: [id number] VICKI
[2017-01-23] MEDS: Omeprazole CAP* 20 MG PO SCH ×2 (13:17→16:11)
--- NOTE | 2017-01-23 13:32 | PN ---
Critical Care Services: Patient has done well overnight (after lytic Rx) but did have episode of right hand tingling/numbness at about 4 AM (resolved after 10-15 minutes). Vital Signs: Temp Pulse Resp BP SpO2 FiO2 98.1 F 56 10 147/73 95 Physical Exam: Gen:Alert, oriented HEENT:No facial asymmetry Neuro: No apparent motor or sensory deficits Fluid Balance (Past 24 Hours): 01/23/17 06:59 Intake Total 1566 Output Total 1300 Balance 266 Weight 202 lb Intake: IV Fluids 964 NS (0.9%) 964 Oral 602 Output: Akhtar 1300 Labs: 01/23/17 01/23/17 05:47 05:47 WBC 7.3 RBC 4.12 Hgb 13.4 L Hct 37 L MCV 91 MCH 33 H MCHC 36 RDW 13 Plt Count 158 Sodium 136 Potassium 3.7 Chloride 108 Carbon Dioxide 25 BUN 19 Creatinine 0.99 Glucose 97 Calcium 8.6 Studies: 1. MRI: Small hemorrhagic infarct along postcentral gyrus on the left. 2. Cardiac ECHO: Diastolic dysfunction of left ventricle. Mitral regurgitation (moderate). Nutrition: Has been NPO Impression: Acute ischemic stroke with hemorrhagic transformation. No apparent neurologic deficits at the present time. Plan: General supportive care. Statin Rx has been strated. Will hold on ASA, given the findings on the MRI. Will repeat CT scan tomorrow.
[2017-01-23] MEDS ORDERED: Morphine INJ* 2 MG/ML 1 ML SYRINGE IV PRN (15:16)
[2017-01-23] MEDS: Atorvastatin* 80 MG TAB PO SCH (16:11)
[2017-01-23] MEDS: Aspirin EC Low Dose* 81 MG TAB.EC PO SCH (18:00)
[2017-01-24] MEDS: Omeprazole CAP* 20 MG PO SCH (08:53)
[2017-01-24] MEDS: Aspirin EC Low Dose* 81 MG TAB.EC PO SCH (08:54)
[2017-01-24] MEDS ORDERED: Pneumococcal Vac Polyvalent* 0.5 ML VIAL IM ONE (09:00)
[2017-01-24] MEDS ORDERED: Aspirin EC TAB* 325 MG PO SCH (09:00)
[2017-01-24] MEDS: Atenolol TAB* 50 MG PO SCH (11:12)
[2017-01-24 12:02] VITALS: BP 147/79
--- NOTE | 2017-01-24 19:19 | PN ---
CC: Manuel Chaudhary MD; Anam Oconnor MD; Faye Best MD PROGRESS NOTE: DATE OF VISIT: 01/24/17 HISTORY OF PRESENT ILLNESS: Mr. Bo Pete is a 66-year-old gentleman with history of hypertension, not on aspirin as an outpatient who presented with acute onset of right upper extremity weakness, numbness and heaviness who proceeded to receive tPA. He continues in the ICU and he did not have any further episodes of tingling since last evening. His headache and stomach upset has resolved. He still has residual right upper extremity symptoms of heaviness and clumsiness. Last evening we discussed results of his MRI of the brain and echocardiogram. PHYSICAL EXAMINATION: On examination today, Mr. Pete's blood pressure was 137/ 73, off blood pressure medications. His pulse was 65, respiratory rate 17, saturation was 95% and temperature was 98.2 degrees Fahrenheit. He had a regular cardiac rhythm. His lungs were clear to auscultation. There was no evidence of peripheral edema. No petechiae. He was awake, alert, articulate, had normal language function. He had full extraocular movements with no nystagmus. He had full freeman to confrontation. His facial expression, sensation and hearing were equal. There was a slight right pronator drift. He had weakness in his right upper extremity in the deltoid biceps, triceps, and intrinsic hand muscles at 5-/5. He was able to find his nose with his eyes closed with his right upper extremity. He had full strength in his lower extremities with normal zyba-np-dkbb movements bilaterally. His Romberg was negative. He can walk on his heels and his toes. He performed tandem gait without difficulty. His modified Ward Score was 1. LABORATORY DATA/DIAGNOSTIC STUDIES: Data includes a MRI of the brain which showed an ischemic stroke in the left postcentral gyrus. This film was reviewed directly, discussed with Radiology, discussed with patient and discussed with ICU attending. He had a previous CT of the brain and neck which showed ulcerated plaque ot the left carotid bulb with no hemodynamically significant stenosis. His echocardiogram showed no cardioembolic source. He did have changes including mild AR, moderate MR, aortic root dilatation. Please see report for details. Medication list was reviewed. The patient remains off blood pressure medications. He is on enteric coated aspirin 81 mg a day, as well as atorvastatin. Although atenolol was written for, he has not received it nor has he received his other outpatient blood pressure medications including amlodipine, losartan and spironolactone. IMPRESSION: This is a 66-year-old gentleman with history of hypertension, not on aspirin who developed right upper extremity symptoms with ischemic stroke found on MRI in the left postcentral gyrus. Differential diagnosis includes thromboembolic source versus cardioembolic source. At this point, he is placed on aspirin 81 mg a day, as well as atorvastatin 80 mg for a thromboembolic source. Rationale for treatment was described. I would continue him on EC ASA 81 mg a day. With atorvastatin, I would continue at high dose for 3 months and then adjust for treatment of lipids. If there are side effects, we may need to change dose earlier. Education was given regarding the importance of monitoring liver function tests as well as symptoms of myalgias while on atorvastatin. He has had blood pressure medications held and I would continue to hold them. His blood pressure at this point has ranged between 128 to 155 systolic over 57 to 83 systolic in hospital. I would allow his symptoms to stabilize for 1 week prior to considering to gently restart blood pressure medications such as beta- hugo. I have asked the patient to keep a blood pressure log every day and to follow up with Dr. Chaudhary in 1 week. Cardioembolic sources on differential diagnosis and I have suggested cardiac consult for a Linq/ loop monitor. The patient has requested Dr. Oconnor and I will work with my office in arranging this consult. He will need a script for PT and OT on discharge per recommendations. Particular work may be needed in OT. 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 PT/OT may be helpful in regaining all activities that he enjoys doing, along with his regular activities of daily living. I have suggested to follow up with me in approximately 4 to 5 weeks. TIME SPENT: Over 30 minutes were spent in direct fqkc-[id number] patient care, over 50% of the time was spent in education and counseling. Additional 20 minutes was spent in coordination of care with nursing and physicians. [id number]/[facility] #: [id number] VICKI
--- NOTE | 2017-01-25 12:51 | DS ---
DISCHARGE SUMMARY: DATE OF ADMISSION: 01/22/17. DATE OF DISCHARGE: 01/24/17. HOSPITAL COURSE: This patient is a 57-year-old white male who was admitted with presumed acute ischemic stroke as the cause of recurrent episodic weakness in the right arm. The patient was given thrombolytic therapy and subsequently admitted to the intensive care unit. On the evening of admission, the patient had another episode of transient weakness in the right arm and MRI showed showed a small area of infarction in the left cingulate gyrus with no surrounding edema. The patient did well clinically while in the hospital and was seen by the neurology service, who will oversee his outpatient management. The patient was discharged from the hospital on 01/24/17 with a modified [place] score of 2 (neurologically intact) and will follow up with Dr. Best's neurology group here. The patient was also started on Lipitor and enteric coated aspirin. FINAL DIAGNOSES: 1. Acute ischemic stroke. 2. Essential hypertension. 3. Mild renal insufficiency. [id number]/CPS #: [id number] MTDD
== END 2017-01-24 13:15 | disposition home or self-care (01) | DRG 61 ==
LOC: ED 08:10 → ICU 12:14
PROVIDERS: ADMIT Internal Medicine Critical Care Medicine; ATTEND Internal Medicine Critical Care Medicine
PROC: 3E03317 Introduction of Other Thrombolytic into Peripheral Vein, Percutaneous Approach (ICD-10-PCS; principal; 2017-01-22)
PROC: 0T9B70Z Drainage of Bladder with Drainage Device, Via Natural or Artificial Opening (ICD-10-PCS; 2017-01-22)
DX: I63.9 Cerebral infarction, unspecified (principal); I61.1 Nontraumatic intracerebral hemorrhage in hemisphere, cortical; I10 Essential (primary) hypertension; K21.9 Gastro-esophageal reflux disease without esophagitis; R53.1 Weakness; R29.703 NIHSS score 3; N28.9 Disorder of kidney and ureter, unspecified; H26.9 Unspecified cataract; R47.81 Slurred speech; R27.8 Other lack of coordination; R40.2412 Glasgow coma scale score 13-15, at arrival to emergency department; R20.0 Anesthesia of skin; I34.0 Nonrheumatic mitral (valve) insufficiency; Z82.49 Family history of ischemic heart disease and other diseases of the circulatory system; Z83.3 Family history of diabetes mellitus; Z72.89 Other problems related to lifestyle; Z80.0 Family history of malignant neoplasm of digestive organs; Z82.0 Family history of epilepsy and other diseases of the nervous system; Z79.82 Long term (current) use of aspirin
CPT/HCPCS: 36415; 70450; 70496; 70498; 70551; 71010; 80048; 80053; 80061; 83605; 84484; 85025; 85610; 85730; 86850; 86900; 86901; 87641; 93306; A9270-GY; C8929; G8996-GN-CH; G8997-GN-CH; G8998-GN-CH; J2405; J2997; Q9967

== ENCOUNTER 2017-01-25 08:15 | Inpatient (IN) | payer OTHER ==
[2017-01-25] MEDS ORDERED: Clopidogrel TAB* 75 MG PO ONE (08:55)
[2017-01-25] MEDS ORDERED: Atorvastatin* 80 MG TAB PO ONE (08:58)
[2017-01-25 09:23] LABS: Hematocrit 39 % (42-52); Hemoglobin 13.4 g/dl (14.0-18.0); Mean Corpuscular HGB Conc 34 g/dl (31-36); Mean Corpuscular Hemoglobin 32 pg (27-31); Mean Corpuscular Volume 93 fL (80-94); Mean Platelet Volume 7 um3 (7.4-10.4); Red Blood Count 4.22 10^6/ul (4.0-5.4); Red Cell Distribution Width 13 % (10.5-15); White Blood Count 5.4 10^3/ul (3.5-10.8)
--- NOTE | 2017-01-25 09:23 | RAD ---
HISTORY: Tingling and heaviness of right arm, history of stroke COMPARISONS: CT dated January 22, 2013, MRI dated January 23, 2017 TECHNIQUE: Multiple contiguous axial CT scans were obtained of the head without intravenous contrast. FINDINGS: HEMORRHAGE/INFARCT: There is no hemorrhage or acute infarct. MASSES/SHIFT: There is no mass or shift. EXTRA-AXIAL SPACES: There are no extra-axial fluid collections. SULCI AND VENTRICLES: The sulci and ventricles are normal in size and position for the patient's stated age. CEREBRUM: There are no focal parenchymal abnormalities. The small area of cortical infarct noted on the previous MRI is not clearly visible on the current CT examination. BRAINSTEM: There are no focal parenchymal abnormalities. CEREBELLUM: There are no focal parenchymal abnormalities. VESSELS: The vessels are grossly normal. PARANASAL SINUSES: The paranasal sinuses are clear. ORBITS: The orbits are unremarkable. BONES AND SOFT TISSUE: No bone or soft tissue abnormalities are noted. OTHER: None IMPRESSION: NO ACUTE INTRACRANIAL PATHOLOGY.
[2017-01-25 09:24] LABS: Add Diff/Slide Review? Slide Review Added; Comments Flag Yes
[2017-01-25 09:43] LABS: Albumin 4.1 g/dL (3.2-5.2); BUN/Creatinine Ratio 11.8 (8-20); EGFR Non-African American 73.1 (>60); Globulin 2.6 g/dL (2-4); Total Bilirubin 0.8 mg/dL (0.2-1.0); Total Protein 6.7 g/dL (6.4-8.9)
[2017-01-25 09:45] LABS: Troponin I 0.01 ng/mL (<0.04)
[2017-01-25 10:19] LABS: Potassium 3.8 mmol/L (3.5-5.0)
[2017-01-25] MEDS: Enoxaparin(*) 40 MG/0.4 ML SYR SUBCUT SCH (10:26)
--- NOTE | 2017-01-25 10:52 | ED ---
Adrian Cain SooYoung, scribed for Dimitris East MD on 01/25/17 at 0830 . Neurological HPI - HPI Summary HPI Summary: A 66 y/o M RUTHY presents to ED with c/o tingling in RUE last night onset approx 2200 lasting about 10 minutes. Radiating towards his neck as well as down to his hip. Associated sx: loss of fine motor skills, RUE weakness. Denies changes in speech, changes in LUE, abd pain. 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 Spontaneous resolution of all episodes. Recent PMHx: pt was admitted three days ago to ICU for CVA, received TPA, and D/C home yesterday afternoon. Seen by Dr. Best, neuro. Prior to last night, last episode occurred two days ago. Pt states last night's episode "felt a little different." Pt started on aspirin, taken today, and atorvastatin, not taken today. He notes having RUE weakness when he was D/C yesterday. Hasn't started PT yet. R-hand dominant - History of Current Complaint Chief Complaint: EDNeurologicalDeficit Stated Complaint: STROKE LIKE SYMPTOMS Time Seen by Provider: 01/25/17 08:29 Hx Obtained From: Patient, EMS, Medical Records Onset/Duration: Started hours ago, Resolved Timing: Intermittent Episodes Lasting: - 10-20 minutes Onset Severity: Mild Current Severity: Mild Neurological Deficit Location: RUE Pain Intensity: 0 Pain Scale Used: 0-10 Numeric Character: Weak - RUE, Numbness/Tingling - RUE tingling, Other: - pos: loss of fine motor skills. neg: changes in speech, changes in LUE, abd pain Episode Lasting: Seconds/Minutes - 10-20 minutes - Additional Pertinent History Primary Care Physician: [id number] - Allergy/Home Medications Allergies/Adverse Reactions: Allergies Allergy/AdvReac Type Severity Reaction Status Date / Time No Known Allergies Allergy Verified 01/22/17 08:29 PMH/Surg Hx/FS Hx/Imm Hx Previously Healthy: No Endocrine/Hematology History: Denies: Hx Diabetes, Hx Thyroid Disease Cardiovascular History: Reports: Hx Hypertension Denies: Hx Pacemaker/ICD Respiratory History: Denies: Hx Asthma, Hx Chronic Obstructive Pulmonary Disease (COPD) GI History: Reports: Hx Gastroesophageal Reflux Disease, Other GI Disorders - indigestion in AM. Increased acid production, controlled with medication. Denies: Hx Ulcer Sensory History: Reports: Hx Cataracts Denies: Hx Contacts or Glasses, Hx Hearing Aid Opthamlomology History: Reports: Hx Cataracts Denies: Hx Contacts or Glasses Psychiatric History: Denies: Hx Panic Disorder - Surgical History Surgery Procedure, Year, and Place: CATARACT REMOVAL Hx Anesthesia Reactions: No Infectious Disease History: No Infectious Disease History: Denies: Hx Hepatitis, Hx Human Immunodeficiency Virus (HIV), Traveled Outside the [place] in Last 30 Days - Family History Known Family History: Positive: Cardiac Disease - father, CABG , Other - neg: CVA Negative: Hypertension, Diabetes - Social History Occupation: Retired Lives: With Family Alcohol Use: Daily Alcohol Amount: 2 drinks daily Hx Substance Use: No Substance Use Type: Reports: None Hx Tobacco Use: No Smoking Status (MU): Never Smoked Tobacco Review of Systems Negative: Abdominal Pain Neurological: Other - pos: loss of fine motor skills in RUE; neg: no changes in speech Positive: Weakness - RUE, Numbness - tingling in RUE All Other Systems Reviewed And Are Negative: Yes Physical Exam - Summary Physical Exam Summary: The patient is well-nourished in no acute distress and in no acute pain. The skin is warm and dry and skin color reflects adequate perfusion. HEENT: The head is normocephalic and atraumatic. The pupils are equal and reactive. EOM INTACT. The conjunctivae are clear and without drainage. Nares are patent and without drainage. Mouth reveals moist mucous membranes and the throat is without erythema and exudate. The external ears are intact. The ear canals are patent and without drainage. The tympanic membranes are intact. Neck is supple with full range of motion and non-tender. There are no carotid bruits. There is no neck vein distension. Respiratory: Chest is non-tender. Lungs are clear to auscultation and breath sounds are symmetrical and equal. Cardiovascular: Heart is regular rate and rhythm. There is no murmur or rub auscultated. There is no peripheral edema and pulses are symmetrical and equal. Abdomen: The abdomen is OBESE, soft and non-tender. There are normal bowel sounds heard in all four quadrants. Musculoskeletal: There is no back pain noted. Extremities are non-tender with full range of motion. There is good capillary refill. There is no peripheral edema or calf tenderness elicited. Neurological: Patient is alert and oriented to person, place and time. The patient has symmetrical motor strength in all four extremities. Deep tendon reflexes are symmetrical and equal in all four extremities. No pronator dift. R finger to nose is slightly off. Speech is appropriate. Cranial nerves II - XII are intact. Psychiatric: The patient has an appropriate affect and does not exhibit any anxiety or depression. Triage Information Reviewed: Yes Vital Signs On Initial Exam: Initial Vitals Temp Pulse Resp BP Pulse Ox 97.6 F 67 16 166/85 96 01/25/17 08:22 01/25/17 08:22 01/25/17 08:22 01/25/17 08:22 01/25/17 08:22 Vital Signs Reviewed: Yes - [place] Coma Scale Coma Scale Total: 15 Diagnostics - Vital Signs Vital Signs Temp Pulse Resp BP Pulse Ox 01/25/17 08:24 97.6 F 67 16 166/85 96 01/25/17 08:22 97.6 F 67 16 166/85 96 - Laboratory Lab Results: Lab Results 01/25/17 01/25/17 01/25/17 Range/Units 09:00 09:00 09:00 WBC 5.4 (3.5-10.8) 10^3/ul RBC 4.22 (4.0-5.4) 10^6/ul Hgb 13.4 L (14.0-18.0) g/dl Hct 39 L (42-52) % MCV 93 (80-94) fL MCH 32 H (27-31) pg MCHC 34 (31-36) g/dl RDW 13 (10.5-15) % Plt Count 163 (150-450) 10^3/ul MPV 7 L (7.4-10.4) um3 Neut % (Auto) 76.2 (38-83) % Lymph % (Auto) 13.6 L (25-47) % Holt % (Auto) 7.5 (1-9) % Eos % (Auto) 1.4 (0-6) % Baso % (Auto) 1.3 (0-2) % Absolute Neuts (auto) 4.1 (1.5-7.7) 10^3/ul Absolute Lymphs (auto) 0.7 L (1.0-4.8) 10^3/ul Absolute Monos (auto) 0.4 (0-0.8) 10^3/ul Absolute Eos (auto) 0.1 (0-0.6) 10^3/ul Absolute Basos (auto) 0.1 (0-0.2) 10^3/ul Absolute Nucleated RBC 0 10^3/ul Nucleated RBC % 0 INR (Anticoag Therapy) 0.98 (0.89-1.11) Sodium 137 (133-145) mmol/L Potassium 3.8 (3.5-5.0) mmol/L Chloride 106 (101-111) mmol/L Carbon Dioxide 24 (22-32) mmol/L Anion Gap 7 (2-11) mmol/L BUN 12 (6-24) mg/dL Creatinine 1.02 (0.67-1.17) mg/dL Est GFR ( Amer) 94.0 (>60) Est GFR (Non-Af Amer) 73.1 (>60) BUN/Creatinine Ratio 11.8 (8-20) Glucose 111 H (70-100) mg/dL Lactic Acid (0.5-2.0) mmol/L Calcium 9.0 (8.6-10.3) mg/dL Total Bilirubin 0.80 (0.2-1.0) mg/dL AST 24 (13-39) U/L ALT 26 (7-52) U/L Alkaline Phosphatase 23 L (34-104) U/L Troponin I 0.01 (<0.04) ng/mL Total Protein 6.7 (6.4-8.9) g/dL Albumin 4.1 (3.2-5.2) g/dL Globulin 2.6 (2-4) g/dL Albumin/Globulin Ratio 1.6 (1-3) 01/25/ Range/Units 09:00 WBC (3.5-10.8) 10^3/ul RBC (4.0-5.4) 10^6/ul Hgb (14.0-18.0) g/dl Hct (42-52) % MCV (80-94) fL MCH (27-31) pg MCHC (31-36) g/dl RDW (10.5-15) % Plt Count (150-450) 10^3/ul MPV (7.4-10.4) um3 Neut % (Auto) (38-83) % Lymph % (Auto) (25-47) % Holt % (Auto) (1-9) % Eos % (Auto) (0-6) % Baso % (Auto) (0-2) % Absolute Neuts (auto) (1.5-7.7) 10^3/ul Absolute Lymphs (auto) (1.0-4.8) 10^3/ul Absolute Monos (auto) (0-0.8) 10^3/ul Absolute Eos (auto) (0-0.6) 10^3/ul Absolute Basos (auto) (0-0.2) 10^3/ul Absolute Nucleated RBC 10^3/ul Nucleated RBC % INR (Anticoag Therapy) (0.89-1.11) Sodium (133-145) mmol/L Potassium (3.5-5.0) mmol/L Chloride (101-111) mmol/L Carbon Dioxide (22-32) mmol/L Anion Gap (2-11) mmol/L BUN (6-24) mg/dL Creatinine (0.67-1.17) mg/dL Est GFR ( Amer) (>60) Est GFR (Non-Af Amer) (>60) BUN/Creatinine Ratio (8-20) Glucose (70-100) mg/dL Lactic Acid 0.6 (0.5-2.0) mmol/L Calcium (8.6-10.3) mg/dL Total Bilirubin (0.2-1.0) mg/dL AST (13-39) U/L ALT (7-52) U/L Alkaline Phosphatase (34-104) U/L Troponin I (<0.04) ng/mL Total Protein (6.4-8.9) g/dL Albumin (3.2-5.2) g/dL Globulin (2-4) g/dL Albumin/Globulin Ratio (1-3) Result Diagrams: 01/25/17 09:00 01/25/17 09:00 Lab Statement: Any lab studies that have been ordered have been reviewed, and results considered in the medical decision making process. - CT BRAIN CT CT Interpretation: No Acute Changes - IMPRESSION: NO ACUTE INTRACRANIAL PATHOLOGY CT Interpretation Completed By: Radiologist - EKG 1 EKG Rhythm: Sinus Rhythm EKG Interpretation: Poor R wave progression. No afib. No STEMI. 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 Non-Paretic Hand: Both Correctly Best Gaze (Only Horizontal Eye Movement): Normal Visual Field Testing: No Visual Loss Facial Paresis-Pt to Smile & Close Eyes or Grimace Symmetry: Normal/Symmetrical Motor Function - Right Arm: No Drift-Holds 10 Seconds Motor Function - Left Arm: No Drift-Holds 10 Seconds Motor Function - Right Leg: No Drift-Holds 10 Seconds Motor Function - Left Leg: No Drift-Holds 10 Seconds Limb Ataxia-Must be out of Proportion to Weakness Present: Present in One Limb Sensory (Use Pinprick to Test Arms/Legs/Trunk/Face): Normal Best Language (Describe Picture, Name Items): No Aphasia Dysarthria (Read Several Words): Normal Extinction and Inattention: No Abnormality Total Score: 1 Re-Evaluation - Re-Evaluation 1 Re-Evaluation Time: 09:03 Change: Unchanged Comment: Discussing neuro consult with pt. Pt agrees to observation. Will contact hospitalist. Course/Dx - Course Course Of Treatment: Pt is a 66 y/o M BIBA presents to ED with c/o tingling in RUE last night onset approx 2200 lasting about 10 minutes. Radiating towards his neck as well as down to his hip. Associated sx: loss of fine motor skills, RUE weakness. Denies changes in speech, changes in LUE, abd pain. 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 Spontaneous resolution of all episodes. Recent PMHx: pt was admitted three days ago to ICU for CVA, and D/C home yesterday afternoon. Seen by Dr. Best, neuro. Prior to last night, last episode occurred two days ago. Pt states last night's episode "felt a little different. " Pt started on aspirin, taken today, and atorvastatin. He notes having RUE weakness when he was D/C yesterday. Hasn't started PT yet. R-hand dominant. Pt given Lipitor and Plavix in ED. Brain CT shows no acute findings. Consulted angelique, recommends 75 mg Plavix, today's statin, EEG r/o a sz, repeat CT r/o bleed, admit for observation to prevent a bigger event at home. Discussed with pt, pt agrees to observation. Spoke to hospitalist, will admit. - Differential Dx Differential Diagnoses Neuro: Positive: Cerebrovascular Accident, Coronary Artery Disease, Dysrhythmia, Transient Ischemic Attack - Diagnoses Provider Diagnoses: TIA (transient ischemic attack), Acute cerebrovascular accident (CVA) within last 8 weeks - Physician Notifications Discussed Care Of Patient With: Tee Edwards - neuro Time Discussed With Above Provider: 08:48 Instructed by Provider To: Admit As Observation - Recommends 75 mg Plavix, today 's statin, EEG r/o a sz, repeat CT r/o bleed, admit for observation to prevent a bigger event at home. Discharge - Discharge Plan Condition: Stable Disposition: ADMITTED TO [facility] Consult Consult: 09:Dr. Ibanez, hospitalist Recommends admission. The documentation as recorded by the Adrian rebolledo SooYoung accurately reflects the service I personally performed and the decisions made by me, Dimitris East MD.
[2017-01-25 11:43] LABS: Urine Bilirubin Negative (Negative); Urine Glucose Negative (Negative); Urine Nitrite Negative (Negative)
--- NOTE | 2017-01-25 17:10 | HP ---
CC: Dr. Manuel Chaudhary. HISTORY AND PHYSICAL: DATE OF ADMISSION: 01/25/17 PRIMARY CARE PHYSICIAN: Dr. Manuel Chaudhary. CHIEF COMPLAINT: Right-sided numbness and weakness. HISTORY OF PRESENT ILLNESS: Mr. Pete is a 66-year-old male with a past medical history of hypertension, GERD, and recent admission for CVA for which he received TPA. The patient was admitted to the hospital from 01/22/17 to with a right-sided numbness and weakness in the right upper extremity. The patient was seen in the emergency department and received TPA on 01/22/17, and was evaluated by Neurology over the phone and his MRI confirmed a stroke on left postcentral gyrus. The patient continued to have some intermittent symptoms throughout the hospitalization, the last was on 01/23/17. The patient was discharged yesterday 01/24/17 with instructions to hold his antihypertensive medications which he has done. He states that he felt well on discharge yesterday, went to bed and then around 10:00 p.m., he had recurrence of his symptoms which he states begins with right finger numbness, then loses motor function in the hand. He states his arm then feels heavy and the numbness radiates up his arm and then into the right neck and down to the right hip. He states the initial symptoms lasted for about 10 to 15 minutes and then resolved. Again early this morning around 3:45, he had similar symptoms. They were less severe this time. The numbness seemed to involve the shoulder but not the neck. These lasted about 5 minutes, and then later this morning around 7:15, he had recurrent symptoms again. This time it seemed that his right arm heaviness was significantly more than previously. The numbness involved the neck. EMS was called and the symptoms resolved within 15 to 20 minutes, which is prior to when EMS arrived. Aside from this, he has had no issues since leaving the hospital. Has been eating and drinking well. No fevers, chills, nausea, vomiting, dysuria, hematuria, or hematochezia. PAST MEDICAL HISTORY: 1. Hypertension. 2. GERD. 3. Recent CVA. PAST SURGICAL HISTORY: Cataract surgery. HOME MEDICATIONS: 1. Lactobacillus 1 capsule but not daily. 2. Atorvastatin 80 mg by mouth every evening. 3. Aspirin 81 mg by mouth daily. 4. Triamcinolone 2 puffs in both nares daily. 5. Omeprazole 20 mg by mouth 2 times daily. 6. Multivitamin 1 tab by mouth daily. Medications that were discontinued after his recent admission were: 1. Atenolol 100 mg by mouth daily. 2. Norvasc 5 mg by mouth daily. 3. Losartan 100 mg by mouth daily. 4. Spironolactone 25 mg by mouth daily. ALLERGIES: The patient has no known drug allergies. FAMILY HISTORY: Significant for hypertension, CAD, and diabetes. SOCIAL HISTORY: The patient has 2 to 3 drinks daily. States it is usually something involving gin. Denies any tobacco use. No history of it. No illicit drug use. REVIEW OF SYSTEMS: A 12-point review of systems negative except for that as noted in the HPI. PHYSICAL EXAMINATION GENERAL: The patient is a middle-aged man, lying in bed, in no apparent distress. VITAL SIGNS: On admission, temperature 97.6, heart rate of 67, respiratory rate of 16, O2 saturation 96% on room air, blood pressure 166/85. HEENT: Head: Normocephalic, atraumatic. Eyes: Pupils equal, round, and reactive to light and accommodation. Anicteric sclerae. ENT: Moist mucous membranes. NECK: No cervical adenopathy. LUNGS: Clear to auscultation bilaterally. No wheezes, rales, or rhonchi. CARDIOVASCULAR: Regular rate and rhythm. S1, S2 present. No murmurs, gallops , or rubs. ABDOMEN: Soft, nontender, nondistended. Bowel sounds positive. EXTREMITIES: No cyanosis, clubbing, or edema. NEUROLOGIC: The patient is alert and oriented x3. Cranial nerves II through XII intact. Strength is 5/5 throughout bilateral upper and lower extremities. Sensation is intact and symmetric throughout. LABS AND DIAGNOSTICS: CT of the head shows no acute intracranial pathology. EKG, personal review shows normal sinus rhythm and some signs of LVH. White blood cell count of 5.4, hematocrit of 39, platelets of 163, INR of 0.98. Sodium 137, potassium is pending, carbon dioxide of 24, chloride of 106, BUN of 12, creatinine 1.02, glucose of 111, lactic acid 0.6, troponin 0.01. ASSESSMENT AND PLAN: Stuttering neurological symptoms after a recent stroke, status post TPA in this 66-year-old male with a history of hypertension, gastroesophageal reflux disease, and cerebrovascular accident. 1. Neurological symptoms consistent with previous stroke. The patient has been off his blood pressure medications. His blood pressures here seemed adequate at 166/[address] Edwards was notified and will evaluate the patient. He recommended addition of Plavix for now to the patient's home aspirin and statin. We will continue to hold his home blood pressure medications. He is currently undergoing an EEG. We will discuss any further workup with Dr. Edwards after he evaluates the patient. We will monitor the patient on telemetry. 2. Gastroesophageal reflux disease. We will hold the patient's PPI for now. While he is on Plavix, he has indicated that he may want to come off it anyway. 3. Hypertension. Holding home medications as above. 4. DVT prophylaxis: Lovenox subcu. 5. Code status: The patient is a full code. TIME SPENT: Total time spent on this admission 45 minutes, more than half the time spent [id number] with the patient in counseling and coordinating care. [id number]/[facility] #: [id number] VICKI
--- NOTE | 2017-01-25 18:07 | PN ---
Hospitalist Progress Note Patient seen and examined at bedside. Mr. Pete reported recurrence of right arm numbness between [id number], lasting "10 to 15 minutes" per the patient. Patient previously here earlier this week and diagnosed with CVA and received TPA. He states that this event is consistent with previous episodes. Neurological exam at 1755 was negative for pronator drift. 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 He did report an extension of the numbness up into the right face, which is different from previous. Discussed with neurology, who saw patient earlier today. Patient already receiving ASA and clopidogrel. No further orders at this time. Neuro checks increased to q2h.
--- NOTE | 2017-01-26 01:45 | CONS ---
CONSULTATION REPORT: DATE OF CONSULT/DICTATION: 01/25/17 PATIENT OF: Jim Ibanez MD HISTORY OF PRESENT ILLNESS: This is a 66-year-old right-handed man, who initially presented on 01/22/17 with sudden onset of right arm numbness and dexterity in the right hand and was felt to have a small stroke and was given TPA with some improvement. His MRI scan which I reviewed subsequently showed a small left cortically based stroke. Since then, he has had improvement in his dexterity and strength in the hand, but his right arm remained slightly weak and he has a slight pronator drift which he proceeded to show me. He, also in addition, has had some episodes, but none since Monday, up until today, of right hand numbness and sometimes in association with tingling in his entire arm. These episodes often last 15 minutes or so and today, he had tingling all the way into the right side of his neck. There was no neck pain with it. He has never had any speech problems and has had no problems with numbness or tingling in his face. There was no facial weakness noted. He has had no prior symptoms suggestive of carpal tunnel syndrome and no prior neck pain or radicular pain. He has significant hypertension and is on spironolactone 25 mg daily, losartan 100 mg daily, atenolol 100 mg q.a.m., amlodipine 1 tablet 5 mg daily, he is on Protonix b.i.d. He has no surgical history. FAMILY HISTORY: Father of liver cancer and a brother has a probable Alzheimer's. SOCIAL HISTORY: He lives with his . He does not smoke. He drinks about 2 drinks every day. 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 REVIEW OF SYSTEMS: Negative in all 14 spheres other than in the HPI. PHYSICAL EXAM: Temperature is 98, pulse 66, respirations 16, blood pressure 159 /74. He is alert and oriented with normal speech and comprehension. Cranial nerves II through XII were intact. There is no facial weakness. Fundi were benign. Motor exam revealed normal tone, strength and gait. He did have a slight right pronator drift. Sensation is intact to light touch. Reflexes were 1 and equal with toes downgoing. Neck was supple. Chest: Clear. Cardiovascular: Regular rate and rhythm. Abdomen is soft, with positive bowel sounds. DIAGNOSTIC STUDIES/LAB DATA: I reviewed his MRI scan and his CT scan today. The films are as described above with a negative CT today and his MRI scan showing small stroke. He had some plaque in his carotids, but no significant stenosis either carotid or intracranial. He had no source of clot on his cardiac echo. His labs included a normal CBC other than hematocrit of 39. INR of 0.98. Normal CMP other than glucose of 111. UA was negative. ASSESSMENT AND PLAN: Bo has had a recent stroke, status post TPA and he is returning with recurrent symptoms, which most likely are ischemic given his recent history; however, as I discussed with him it is a little unusual to have tingling involving his whole arm up to the neck, but without any facial tingling or numbness. It is conceivable that some of his symptoms could be neck related and he is not sure whether his hand gets numb or tingly, not in association with his whole hand and he is going to pay more attention to that. He thinks it is more likely that the hand is with the hand and that this is a small amount of recurrent ischemia, possibly secondary to a distal blood vessel that is narrowed and we are beginning aspirin and Plavix, but he is going to pay more attention to his symptoms, and we may get his MRI scan of the C-spine or do nerve conduction study of his hand if it seems like his symptoms are more suggestive of a peripheral problem. I also discussed that his pattern of disease which is if this is all due to ischemia would be a single small blood vessel would not likely to be secondary to cardioembolic stroke since there is not a diffuse pattern or multifocal pattern of ischemia, but I would agree that getting long-term monitoring would be a consideration. Finally, I discussed with the patient and his that if he were to have a large stroke, we would definitely contact [facility] and we will have to reevaluate to see if he would be a candidate for clot retrieval and given his recent treatment with TPA and his recent stroke this would be a relative contraindication for giving TPA, but the stroke was quite small so we would need to re-evaluate the clinical situation exactly. Thank you for sharing his case. [id number]/[facility] #: [id number] VICKI
--- NOTE | 2017-01-26 08:57 | EEG ---
ELECTROENCEPHALOGRAPHY: DATE OF STUDY: 01/25/17 - ROOM #445 DATE OF DICTATION: 01/25/17 PATIENT OF: Dr. East HISTORY: This is a 66-year-old man being evaluated for episodes of numbness and tingling in his right hand and arm with a history of stroke. The study was done to evaluate for possible focal seizures. MEDICATIONS: Include 1. Lipitor. 2. Aspirin. 3. Plavix. INTERPRETATION: With the patient awake, background cerebral activity consists of moderate amplitude posterior dominant 8 to 9 Hz rhythm, which attenuates with eye opening and reappears with eye closure. With the patient drowsy, there is slowing into the theta range, but the patient never falls fully asleep. No epileptiform potentials, focal abnormalities, or major asymmetries of background are noted. IMPRESSION: This awake and drowsy EEG is within normal limits. [id number]/[facility] #: [id number] MTDD
[2017-01-26] MEDS: Multivitamins/Minerals TAB PO SCH (09:52)
[2017-01-26] MEDS: Aspirin EC Low Dose* 81 MG TAB.EC PO SCH (09:52)
[2017-01-26] MEDS: Enoxaparin(*) 40 MG/0.4 ML SYR SUBCUT SCH (09:52)
[2017-01-26] MEDS: Clopidogrel TAB* 75 MG PO SCH (09:53)
--- NOTE | 2017-01-26 10:35 | PN ---
Subjective Date of Service: 01/26/17 Interval History: Patient seen this morning. Had 2 additional events here in the hospital, one around 6:00 PM last night and another around 4 AM. The event in the evening began with numbness/tingling in the R arm and the patient says it did spread and involved his lower face. It resolved and his arm felt "heavy" for about 1 hour after. The episode early this AM was less pronounced and remained in the arm only. He feel back to his "post-stroke" baseline at this time. Family History: Unchanged from Admission Social History: Unchanged from Admission Past Medical History: Unchanged from Admission Objective Active Medications: Aspirin (Aspirin Ec Low Dose*) 81 mg PO DAILY [facility] Last Admin: 01/26/17 09:52 Dose: 81 mg Atorvastatin Calcium (Lipitor*) 80 mg PO 1700 [facility] Clopidogrel Bisulfate (Plavix Tab*) 75 mg PO DAILY [facility] Last Admin: 01/26/17 09:53 Dose: 75 mg Enoxaparin Sodium (Lovenox(*)) 40 mg SUBCUT Q24H [facility] Last Admin: 01/26/17 09:52 Dose: 40 mg Multivitamins/Minerals (Theragran/Minerals Tab*) 1 tab PO QAM [facility] Last Admin: 01/26/17 09:52 Dose: 1 tab Vital Signs 01/25/17 01/25/17 01/25/17 10:30 10:40 10:45 Temperature 98 F Pulse Rate 65 66 66 Respiratory 16 Rate Blood Pressure 157/85 157/85 159/74 (mmHg) O2 Sat by Pulse 98 99 Oximetry 01/26/17 01/26/17 03:28 08:00 Temperature 98.2 F 98.5 F Pulse Rate 84 71 Respiratory 16 16 Rate Blood Pressure 174/82 142/80 (mmHg) O2 Sat by Pulse 98 96 Oximetry Oxygen Devices in Use Now: None Appearance: Middle-aged, M, laying in bed in NAD Eyes: No Scleral Icterus Ears/Nose/Mouth/Throat: Mucous Membranes Moist Neck: NL Appearance and Movements; NL JVP Respiratory: Symmetrical Chest Expansion and Respiratory Effort, Clear to Auscultation Cardiovascular: NL Sounds; No Murmurs; No JVD, RRR Abdominal: NL Sounds; No Tenderness; No Distention Lymphatic: No Cervical Adenopathy Extremities: No Edema Skin: No Rash or Ulcers Neurological: Alert and Oriented x 3, NL Sensation, NL Muscle Strength and Tone Result Diagrams: 01/25/17 09:00 01/25/17 09:00 Assess/Plan/Problems-Billing Assessment: Stuttering neurological symptoms (R sided numbness/tingling/heaviness) after a recent stroke in a 66 yo M with hx of HTN, GERD - Patient Problems (1) Numbness and tingling of right arm Current Visit: Yes Comment: associated with "heaviness". Appreciate Neruology assistance. Episode last night did seem to involve the patients face. Continue ASA, Plavix and statin. EEG WNL. Continue to hold home anti-hypertensives. Will await further input from neuro. PT. (2) GERD (gastroesophageal reflux disease) Current Visit: Yes Comment: Holding home PPI (3) Hypertension Current Visit: No Comment: Holding home BP meds (4) DVT prophylaxis Current Visit: Yes Comment: Loveclarissax SQ Status and Disposition: Pending re-evaluation by Neurology and ?further work-up
[2017-01-26] MEDS: Atorvastatin* 80 MG TAB PO SCH (17:04)
--- NOTE | 2017-01-26 17:07 | RAD ---
Indication: Recent CVA. Assess for progression. Numbness and tingling in the RIGHT arm with feeling of heaviness for one hour. Facial numbness last night. Comparison: January 25, 2017 CT and MRI. Technique: [employer] [place] 1.5 Aimee [id number] with GEM suite. MRI brain without contrast. Report: No significant change in magnitude of mild linear restricted diffusion along the margins of the LEFT post central gyrus at the superior parietal lobule compared with the exam of January 23, 2017. Corresponding decreased signal on the ADC map. No new region of restricted diffusion evident. Susceptibility series is negative for stigmata of hemosiderin deposition to indicate previous hemorrhage. Negative for intra or extra-axial fluid collection. Few minimal foci of T2 FLAIR hyperintense signal within the periventricular and subcortical white matter of the cerebral hemispheres. Unremarkable orbital contents. Preserved major intracranial flow-voids. No suspicious calvarial or skull base lesion evident. Small mucous retention cysts or polyps at the maxillary sinuses. Negative for paranasal sinus fluid levels. Clear mastoid air spaces. Unremarkable scalp. IMPRESSION: 1. No significant change in subacute ischemic infarct at the LEFT post central gyrus/ superior parietal lobule. Negative for significant mass effect. 2. No additional region of ischemia evident. 3. Few nonspecific T2 FLAIR hyperintensities in the periventricular and subcortical white matter of the cerebral hemispheres while not entirely specific are likely secondary to chronic small vessel ischemic disease.
--- NOTE | 2017-01-27 09:29 | PN ---
NEUROLOGICAL FOLLOWUP: DATE OF SERVICE: 01/26/17 HISTORY: This is a 66-year-old man being evaluated for his focal neurological symptoms. At about 6 p.m. last night, he had an episode of numbness that extended up his entire arm and then went into his what as lower face, but it was not by his mouth or cheek area, it was more around the ear and jaw. This lasted for 15 minutes or so and then he returned to his baseline. He also had a brief episode this morning lasting about 10 or 15 minutes, there was only this numbness from his elbow on down. He has had no neck pain. MEDICATIONS: He continues to be on his: 1. Aspirin. 2. Atorvastatin. 3. Plavix. PHYSICAL EXAMINATION: Temperature 99.4, pulse 87, respirations 16, blood pressure 154/87. He is alert and oriented with normal speech and comprehension. Cranial nerves II through XII are intact. Pupils are equal, round, and reactive to light. Motor exam revealed normal tone, strength, coordination. He has been able to walk earlier this morning without problem. He remains to have a slight right pronator drift. Chest: Clear. Cardiovascular: Regular rate and rhythm. Abdomen: Soft with positive bowel sounds. ASSESSMENT AND PLAN: I discussed with Bo that usually with ischemia that involves face and arm, it is around the cheek and around the mouth that gets involved in the face and not around the ear, but his story is concerning enough that we are repeating an MRI scan at this point to see if there is evidence for further stroke compared to a few days ago as well as to see if there is evidence of stroke in a more diffuse pattern that would suggest cardioembolic stroke. I think this is unlikely given his clinical symptoms, but discussed with him that if his symptoms continue, but did not worsen, then he would not continue to be in the hospital indefinitely, but for now as changing picture is happening, we will be doing the MRI scan and observing him for a little a while longer. Dr. Tafoya will be seeing him tomorrow. [id number]/[facility] #: [id number] MTDD
[2017-01-27] MEDS: Multivitamins/Minerals TAB PO SCH (09:40)
[2017-01-27] MEDS: Clopidogrel TAB* 75 MG PO SCH (09:40)
[2017-01-27] MEDS: Enoxaparin(*) 40 MG/0.4 ML SYR SUBCUT SCH (09:40)
[2017-01-27] MEDS: Aspirin EC Low Dose* 81 MG TAB.EC PO SCH (09:40)
--- NOTE | 2017-01-27 13:16 | PN ---
Subjective Date of Service: 01/27/17 Interval History: Patient seen this morning. Reports some intermittent tingling in the tip of his finger but no further episodes as he has been having. Feels well. Family History: Unchanged from Admission Social History: Unchanged from Admission Past Medical History: Unchanged from Admission Objective Active Medications: Aspirin (Aspirin Ec Low Dose*) 81 mg PO DAILY [facility] Last Admin: 01/27/17 09:40 Dose: 81 mg Atenolol (Tenormin Tab*) 100 mg PO DAILY [facility] Atorvastatin Calcium (Lipitor*) 80 mg PO 1700 [facility] Last Admin: 01/26/17 17:04 Dose: 80 mg Clopidogrel Bisulfate (Plavix Tab*) 75 mg PO DAILY [facility] Last Admin: 01/27/17 09:40 Dose: 75 mg Enoxaparin Sodium (Lovenox(*)) 40 mg SUBCUT Q24H [facility] Last Admin: 01/27/17 09:40 Dose: 40 mg Levetiracetam (Keppra Tab*) 250 mg PO BID [facility] Multivitamins/Minerals (Theragran/Minerals Tab*) 1 tab PO QAM [facility] Last Admin: 01/27/17 09:40 Dose: 1 tab Vital Signs 01/26/17 01/26/17 01/26/17 15:11 19:18 20:00 Temperature 98.1 F 98.4 F Pulse Rate 86 109 Respiratory 16 16 15 Rate Blood Pressure 166/88 164/88 (mmHg) O2 Sat by Pulse 96 95 Oximetry 01/26/17 01/27/17 01/27/17 23:48 03:57 07:30 Temperature 99.9 F 99.4 F Pulse Rate 66 66 Respiratory 16 16 18 Rate Blood Pressure 150/73 141/72 (mmHg) O2 Sat by Pulse 99 97 Oximetry 01/27/17 01/27/17 07:35 11:50 Temperature 98.0 F 99.7 F Pulse Rate 66 76 Respiratory 16 16 Rate Blood Pressure 153/80 162/78 (mmHg) O2 Sat by Pulse 96 98 Oximetry Oxygen Devices in Use Now: None Appearance: Middle-aged, M, laying in bed in NAD Eyes: No Scleral Icterus Ears/Nose/Mouth/Throat: Mucous Membranes Moist Neck: NL Appearance and Movements; NL JVP Respiratory: Symmetrical Chest Expansion and Respiratory Effort, Clear to Auscultation Cardiovascular: NL Sounds; No Murmurs; No JVD, RRR Abdominal: NL Sounds; No Tenderness; No Distention Lymphatic: No Cervical Adenopathy Extremities: No Edema Skin: No Rash or Ulcers Neurological: Alert and Oriented x 3 Result Diagrams: 01/25/17 09:00 01/25/17 09:00 Assess/Plan/Problems-Billing Assessment: Stuttering neurological symptoms (R sided numbness/tingling/heaviness) after a recent stroke in a 66 yo M with hx of HTN, GERD - Patient Problems (1) Numbness and tingling of right arm Current Visit: Yes Comment: Recent CVA, received TPA. Appreciate Neruology assistance. Dr. Tafoya wondering if there may be some low level seizure activity causing the symptoms despiute normal EEG, will start Keppra 250 mg PO BID. Continue ASA, Plavix and statin. (2) GERD (gastroesophageal reflux disease) Current Visit: Yes Comment: Holding home PPI (3) Hypertension Current Visit: No Comment: Resume home Atenolol. Hold remaining BP meds. (4) DVT prophylaxis Current Visit: Yes Comment: Lovenox SQ Status and Disposition: Possible discharge tomorrow if no further events
[2017-01-27] MEDS: levETIRAcetam TAB* 500 MG PO SCH ×2 (14:50→20:46)
[2017-01-27] MEDS: Atenolol TAB* 50 MG PO SCH (14:50)
[2017-01-27] MEDS: Atorvastatin* 80 MG TAB PO SCH (17:40)
--- NOTE | 2017-01-27 18:46 | PN ---
Progress Note - Progress Note Date of Service: 01/27/17 SOAP: Neurology progress note Date of service 01/27/17 Subjective: I saw and examined the patient around 12:30 today. Patient did not have any episodes since about 4am on 01/26 (more than 30 hours ago). Objective: Vital Signs Temp Pulse Resp BP Pulse Ox 98.2 F 93 14 157/87 94 01/27/17 15:05 01/27/17 15:05 01/27/17 15:05 01/27/17 15:05 01/27/17 15:05 Current Medications Aspirin (Aspirin Ec Low Dose*) 81 mg PO DAILY [facility] Last Admin: 01/27/17 09:40 Dose: 81 mg Atenolol (Tenormin Tab*) 100 mg PO DAILY [facility] Last Admin: 01/27/17 14:50 Dose: 100 mg Atorvastatin Calcium (Lipitor*) 80 mg PO 1700 [facility] Last Admin: 01/27/17 17:40 Dose: 80 mg Clopidogrel Bisulfate (Plavix Tab*) 75 mg PO DAILY [facility] Last Admin: 01/27/17 09:40 Dose: 75 mg Enoxaparin Sodium (Lovenox(*)) 40 mg SUBCUT Q24H [facility] Last Admin: 01/27/17 09:40 Dose: 40 mg Levetiracetam (Keppra Tab*) 250 mg PO BID [facility] Last Admin: 01/27/17 14:50 Dose: 250 mg Multivitamins/Minerals (Theragran/Minerals Tab*) 1 tab PO QAM [facility] Last Admin: 01/27/17 09:40 Dose: 1 tab On neurological exam, pupils symmetric and reactive to light. Face is symmetric. Tongue is in midline. Palate elevates upward. Strength 5/5 throughout with mild pronator drift. Sensation is intact to light touch and pinprick. Finger to nose intact bilaterally. MRI BRAIN W/O (01/26) IMPRESSION: 1. No significant change in subacute ischemic infarct at the LEFT post central gyrus/ superior parietal lobule. Negative for significant mass effect. 2. No additional region of ischemia evident. 3. Few nonspecific T2 FLAIR hyperintensities in the periventricular and subcortical white matter of the cerebral hemispheres while not entirely specific are likely secondary to chronic small vessel ischemic disease. Assessment and Plan: 66-year-old male with a recent small infarct in the postcentral gyrus with episodic tingling and numbness in the right hand. Description of these episodes seems have a sudden onset, and start from the fingers and spreads proximally. They also resolve from the proximal and then distally in the fingers. This pattern, given the location of the infarct, raises the question of partial seizures. The EEG is normal, which is not unexpected to not strip picker epileptiform discharges given the small area of the infract ; a repeat MRI did not show any evidence of new ischemic changes. Suggested to start the patient on a low dose of Levetiracetam at 250 mg bid and gradually increase to 500 mg bid. The potential side effects including mood changes and irritability was discussed. The patient is in agreement. The pattern of these fluctuating episodes is less likely to be of vascular etiology. Also, about his antihypertensive medication, I think he should restart his antihypertensive meds, as he is almost 5 days post stroke. Time spent at beside describing the above at least 25 minutes.
[2017-01-28 07:42] VITALS: BP 139/71
[2017-01-28] MEDS: Multivitamins/Minerals TAB PO SCH (08:39)
[2017-01-28] MEDS: Clopidogrel TAB* 75 MG PO SCH (08:39)
[2017-01-28] MEDS: levETIRAcetam TAB* 500 MG PO SCH (08:39)
[2017-01-28] MEDS: Atenolol TAB* 50 MG PO SCH (08:39)
[2017-01-28] MEDS: Aspirin EC Low Dose* 81 MG TAB.EC PO SCH (08:39)
[2017-01-28] MEDS: Enoxaparin(*) 40 MG/0.4 ML SYR SUBCUT SCH (10:36)
--- NOTE | 2017-01-28 10:39 | PN ---
Progress Note - Progress Note Date of Service: 01/28/17 SOAP: Neurology progress note Date of service: 01/28/17 Subjective: Patient had no further episode of tingling in the right hand. Stable. No symptoms or concerns. Have been doing OT exercises with the right hand. Objective: Vital Signs Temp Pulse Resp BP Pulse Ox 97.7 F 57 16 139/71 96 01/28/17 07:25 01/28/17 07:25 01/28/17 08:00 01/28/17 07:25 01/28/17 07:25 Current Medications Aspirin (Aspirin Ec Low Dose*) 81 mg PO DAILY [facility] Last Admin: 01/28/17 08:39 Dose: 81 mg Atenolol (Tenormin Tab*) 100 mg PO DAILY [facility] Last Admin: 01/28/17 08:39 Dose: 100 mg Atorvastatin Calcium (Lipitor*) 80 mg PO 1700 [facility] Last Admin: 01/27/17 17:40 Dose: 80 mg Clopidogrel Bisulfate (Plavix Tab*) 75 mg PO DAILY [facility] Last Admin: 01/28/17 08:39 Dose: 75 mg Enoxaparin Sodium (Lovenox(*)) 40 mg SUBCUT Q24H [facility] Last Admin: 01/27/17 09:40 Dose: 40 mg Levetiracetam (Keppra Tab*) 250 mg PO BID [facility] Last Admin: 01/28/17 08:39 Dose: 250 mg Multivitamins/Minerals (Theragran/Minerals Tab*) 1 tab PO QAM [facility] Last Admin: 01/28/17 08:39 Dose: 1 tab Neurological exam: Awake, alert, oriented x 3. Pupils symmetric and reactive. EOMI. Face symmetric. V1-3 intact to light touch pinprick. Tongue in midline. Palate elevates upward. On motor exam only slight pronator drift on the right. Otherwise, strength is 5/5 throughout. Sensation is intact to light touch and poinprick in the upper and lower extremities, other than a very mild decrease to pinprick on the 2nd and 3rd in the right hand. Rapid alternative movements intact. Finger to nose intact bilaterally. Assessment and Plan: 66 year old male with a history of ischemic stroke on last monday, in the post- central gyrus on the left hemisphere. Had some fluctuating symptoms in the past few days. My highest suspicion is simple partial seizure explaning these episodic symptoms of sudden onset and offset in the setting of stroke, given the location of the stroke being close to the somatosensory cortex. Started him on a low dose of levetiracetam since yesterday at 250 mg bid. Patient can be discharged from neurological standpoint. Recommend to continue on levetiracetam at 250 mg bid ntil Tuesday 01/30 and then increase on Tuesday 01/30 to 500 mg bid. Continue high dose statins for now. Continue dual therapy of ASA and plavix for 90 days and then switch to monotherapy with ASA, or when instructed by his neurologist. Follow up with neurology in about 4 weeks ( previously had been discussed with him by Dr. Best). Continue full control of blood pressure now.
--- NOTE | 2017-01-28 11:12 | DCNOTE ---
Patient seen this morning. No new issues, no recurrent of symptoms, feels well. On exam, RRR, s1 and s2 present, no m/g/r, abd soft, NTND, BS+, no LE edema Discharge on Keppra 250 mg BID for today and tomorrow and then increase to 500 mg BID. ASA/Plavix x 3 months then ASA monotherapy. Resume home anti-HTN. F/U with PCP and Neurology.
--- NOTE | 2017-01-29 12:50 | DS ---
CC: Dr. Manuel Chaudhary; Faye Best MD, Neurology DISCHARGE SUMMARY: DATE OF ADMISSION: 01/25/17 DATE OF DISCHARGE: 01/28/17 PRIMARY CARE PHYSICIAN: Dr. Manuel Chaudhary. PRINCIPAL DISCHARGE DIAGNOSES: 1. Right-sided numbness and tingling, possibly due to low grade seizure activity. 2. Recent cerebrovascular accident, status post TPA. SECONDARY DIAGNOSES: 1. Hypertension. 2. Gastroesophageal reflux disease. CONSULTANTS DURING HOSPITALIZATION: Dr. Tee Edwards, Neurology. Dr. Aidan Tafoya, Neurology. STUDIES DONE DURING HOSPITALIZATION: CT of the brain. Impression: No acute intracranial pathology. EEG. Impression: This awake and drowsy EEG is within normal limits. MRI of the brain. Impression: No significant change and subacute ischemic infarct of the left central gyrus/superior parietal lobule, negative for significant mass affect. No additional region of ischemia evident. Few nonspecific T2 FLAIR hyperintensities in the periventricular and subcortical white matter of the cerebral hemispheres, while not entirely specific are likely secondary to chronic small vessel ischemic disease. DISCHARGE MEDICATION REGIMEN: 1. Lactobacillus 1 capsule by mouth daily. 2. Atorvastatin 80 mg by mouth daily. 3. Aspirin 81 mg by mouth daily. 4. Triamcinolone 2 puffs in both nares daily. 5. Multivitamin 1 tab by mouth daily. 6. Keppra 250 mg by mouth 2 times daily for 1 more day and then 500 mg by mouth 2 times daily. 7. Amlodipine 5 mg by mouth daily. 8. Spironolactone 25 mg by mouth daily. 9. Losartan 100 mg by mouth daily. 10. Plavix 75 mg by mouth daily. 11. Atenolol 100 mg by mouth daily. HISTORY OF PRESENT ILLNESS AND HOSPITAL SUMMARY: Please see my full history and physical for full details. Briefly, Mr. Pete is a 66-year-old male with a past medical history as above, who presented to the hospital 1 day after his discharge when he was hospitalized for stroke and received TPA. During the previous hospitalization prior to this he had been having these episodes of right-sided numbness and weakness. He had gone over 24 hours without an episode prior to his discharge and then later that night and again the next morning, he had recurrence of the symptoms and he came to the hospital for further evaluation. He was seen by Neurology and EEG was done as above, which was negative. The first night of his hospitalization, he had recurrent symptoms. He had another MRI done, which did not show any extension of the previous stroke. Plavix was added to his regimen and it was felt that his symptoms may be due to small seizure activity going on, that was not able to be picked up by the EEG. The patient was started on a low dose of Keppra 250 mg by mouth daily and was instructed to increase this to 500 mg by mouth daily beginning on 01/30/17. The patient will be continued on his high dose statin as well as aspirin and Plavix with plans to reduce to aspirin monotherapy after 3 months. The patient did not have any recurrence of the symptoms 2 days prior to discharge and he will follow up with his PCP and Dr. Best as an outpatient. His atenolol was restarted here in the hospital as most of his previous blood pressure medications had been held in the setting of his recent stroke. Dr. Tafoya felt confident to restart all his antihypertensive medications, however , the patient wanted to wait until he saw his PCP to add back anything aside from the atenolol, which I said was okay. TIME SPENT: Total time spent on this discharge was 45 minutes. This is a summary of the hospitalization, please see the full medical record for further details. [id number]/[facility] #: [id number] MTDD
== END 2017-01-28 12:15 | disposition home or self-care (01) | DRG 101 ==
LOC: ED 08:15 → MEDTELE 09:30 → OBSVTOIN 01-26 13:15
PROVIDERS: ADMIT Hospitalist; ATTEND Hospitalist
PROC: 4A00X4Z Measurement of Central Nervous Electrical Activity, External Approach (ICD-10-PCS; principal; 2017-01-25)
DX: R56.9 Unspecified convulsions (principal); I10 Essential (primary) hypertension; R40.2412 Glasgow coma scale score 13-15, at arrival to emergency department; R29.701 NIHSS score 1; R20.2 Paresthesia of skin; K21.9 Gastro-esophageal reflux disease without esophagitis; Z98.42 Cataract extraction status, left eye; Z98.41 Cataract extraction status, right eye; Z82.49 Family history of ischemic heart disease and other diseases of the circulatory system; Z72.89 Other problems related to lifestyle; Z83.3 Family history of diabetes mellitus; Z80.0 Family history of malignant neoplasm of digestive organs; Z84.89 Family history of other specified conditions; Z79.82 Long term (current) use of aspirin; Z79.02 Long term (current) use of antithrombotics/antiplatelets; Z86.73 Personal history of transient ischemic attack (TIA), and cerebral infarction without residual deficits
CPT/HCPCS: 36415; 70450; 70551; 80053; 81003; 83605; 84484; 85025; 85610; 93005; 95819; A9270-GY; G0378; J1650

== ENCOUNTER 2017-04-01 11:18 | Emergency (ER) | payer MEDICARE ==
[2017-04-01 11:33] VITALS: BP 147/74
--- NOTE | 2017-04-01 11:48 | UC ---
Lower Extremity/Ankle HPI - HPI Summary HPI Summary: 67 yo male was walking and felt a pop left achilles said he injured it about 25 yrs ago-no surgery pain with wt bearing - History of Current Complaint Chief Complaint: UCLowerExtremity Stated Complaint: LEG INJURY Time Seen by Provider: 04/01/17 11:36 Hx Obtained From: Patient Onset/Duration: Sudden Onset Severity Initially: Severe Severity Currently: Mild Pain Intensity: 4 Pain Scale Used: 0-10 Numeric Aggravating Factor(s): Standing, Ambulation Alleviating Factor(s): Rest Able to Bear Weight: Yes - Allergies/Home Medications Allergies/Adverse Reactions: Allergies Allergy/AdvReac Type Severity Reaction Status Date / Time No Known Allergies Allergy Verified 04/01/17 11:33 PMH/Surg Hx/FS Hx/Imm Hx Previously Healthy: No Cardiovascular History: Hypertension Neurological History: CVA - Surgical History Surgical History: Yes Surgery Procedure, Year, and Place: CATARACT REMOVAL - Family History Known Family History: Positive: Cardiac Disease - father, CABG , Other - neg: CVA Negative: Hypertension, Diabetes - Social History Alcohol Use: Rare Alcohol Amount: 2 drinks daily Substance Use Type: None Smoking Status (MU): Never Smoked Tobacco - Immunization History Most Recent Influenza Vaccination: fall 2015 Most Recent Pneumonia Vaccination: never Review of Systems Constitutional: Negative Skin: Negative Eyes: Negative ENT: Negative Respiratory: Negative Cardiovascular: Negative Gastrointestinal: Negative Genitourinary: Negative Motor: Negative Neurovascular: Negative Musculoskeletal: Negative Neurological: Negative Psychological: Negative All Other Systems Reviewed And Are Negative: Yes Physical Exam Triage Information Reviewed: Yes Appearance: Well-Appearing, No Pain Distress, Well-Nourished Vital Signs: Initial Vital Signs Temp 97.6 F 04/01/17 11:28 Pulse 51 04/01/17 11:28 Resp 16 04/01/17 11:28 BP 147/74 04/01/17 11:28 Pulse Ox 100 04/01/17 11:28 Vital Signs Reviewed: Yes ENT: Positive: Hearing grossly normal. Negative: Nasal congestion, Nasal drainage, Trismus, Muffled/hoarse voice Neck: Positive: Supple, Nontender, No Lymphadenopathy Respiratory: Positive: Lungs clear, Normal breath sounds, No respiratory distress Cardiovascular: Positive: RRR, No Murmur, Pulses Normal Musculoskeletal: Positive: Other: - see image, squeezing left calf resulted in very little movement of foot Neurological: Positive: Alert Psychological Exam: Normal Skin Exam: Normal Lower Extremity Course/Dx - Differential Dx/Diagnosis Provider Diagnoses: rupture of left achilles tendon - Physician Notifications Discussed Patient Care With: Alison Discharge - Discharge Plan Condition: Stable Disposition: HOME Patient Education Materials: Achilles Tendon Rupture (ED) Referrals: Manuel Rosas MD [Medical Doctor] - As Soon As Possible (call Tues AM and set up an appt) Additional Instructions: Cam boot crutches with non wt bearing Images Feet (Multiple View): 1 - tender/swollen
== END 2017-04-01 12:12 | disposition home or self-care (01) ==
LOC: UCEAST 11:18
DX: S86.012A Strain of left Achilles tendon, initial encounter (principal); X58.XXXA Exposure to other specified factors, initial encounter
CPT/HCPCS: 99213; G0463